=== PATIENT | male | born 1940 | race Caucasian/White ===

== ENCOUNTER 2018-02-17 10:51 | Emergency (ER) | payer MEDICARE, OTHER ==
[~2018-02-17] VITALS: Ht 175.3 cm; Wt 89.4 kg
--- OUTSIDE RECORDS SUMMARY | 2018-02-17 10:53 | XMS REPORT | Continuity of Care Document ---
Author Author [facility] Interface Address Unknown Phone Unavailable Problems Problem Status Onset Date Classification Date Reported Comments Source AAA Active 05/28/2016 [facility] AAA /ABDOMINAL AORTIC ANEURYSM Active 05/28/2016 [facility] AAA (<span [id number]</span>) Resolved Problem 08/24/2016 [facility] Coronary artery disease Resolved Problem 08/24/2016 [facility] Skin cancer Resolved Problem 08/24/2016 [facility] ABDOMINAL AORTIC ANEURYSM, RUPTURED Active [facility] ABDOMINAL AORTIC ANEURYSM, WITHOUT RUPTU Active [facility] Medications Medication Details Route Status Patient Instructions Ordering Provider Order Date Source Coreg 12.5 mg, Route: PO, Drug form: TAB, Q12H, Dosing Weight 92, kg, Start date: 05/28/16 21:00:00 RESP THER, Duration: 30 day, Stop date: 06/27/16 9:00:00 CDT Inactive 05/29/2016 [facility] lisinopril 20 mg oral tablet 40 mg=2 tab, PO, Daily, # 90 tab, 3 Refill(s) Active 05/28/2016 [facility] clopidogrel 75 mg oral tablet 75 mg=1 tab, PO, Daily, # 90 tab, 3 Refill(s) Active 05/28/2016 [facility] aspirin 81 mg tablet, enteric coated 81 mg=1 tab, PO, Daily, # 90 tab, 3 Refill(s) Active 05/28/2016 [facility] simvastatin 40 mg oral tablet 40 mg=1 tab, PO, Bedtime, # 90 tab, 3 Refill(s) Active 05/28/2016 [facility] levothyroxine 25 mcg (0.025 mg) oral tablet 25 microgram=1 tab, PO, Daily, # 90 tab, 3 Refill(s) Active 05/28/2016 [facility] carvedilol 12.5 mg oral tablet 12.5 mg=1 tab, PO, Daily, # 90 tab, 3 Refill(s) Active 05/28/2016 [facility] carvedilol 6.25 mg, 1 tab, Route: PO, Drug form: TAB, Daily, Dosing Weight 92, kg, Start date: 05/28/16 9:00:00 RESP THER, Duration: 30 day, Stop date: 06/26/16 9:00:00 CDTNotes: Give with food. (Same As: Coreg) No Longer Active 05/28/2016 [facility] Plavix 75 mg, 1 tab, Route: PO, Drug form: TAB, Daily, Dosing Weight 92, kg, Start date: 05/28/16 9:00:00 RESP THER, Duration: 30 day, Stop date: 06/26/16 9:00:00 CDTNotes: (Same As: Plavix) Inactive 05/28/2016 [facility] Lisinopril 40 mg, 2 tab, Route: PO, Drug form: TAB, Daily, Dosing Weight 92, kg, Start date: 05/28/16 9:00:00 RESP THER, Duration: 30 day, Stop date: 06/26/16 9:00:00 CDTNotes: (Same as: Prinivil, Zestril) Inactive 05/28/2016 [facility] Aspirin 81 mg, 1 tab, Route: PO, Drug form: ECTAB, Daily, Dosing Weight 92, kg, Start date: 05/28/16 9:00:00 RESP THER, Duration: 30 day, Stop date: 06/26/16 9:00:00 CDTNotes: Do not crush or chew. (Same As: Ecotrin) Inactive 05/28/2016 [facility] Thyroxine 25 microgram, 1 tab, Route: PO, Drug form: TAB, Daily, Dosing Weight 92, kg, Start date: 05/28/16 6:30:00 RESP THER, Duration: 30 day, Stop date: 06/26/16 6:30:00 CDTNotes: Take 1 hour before or 2 hours after meal; Enteral feeds may interefere with the absorption of this medication. (Same as:Levothroid) Inactive 05/28/2016 [facility] Coreg 6.25 mg, 1 tab, Route: PO, Drug form: TAB, ONCE, Dosing Weight 92, kg, Priority: NOW, Start date: 05/28/16 4:32:00 RESP THER, Stop date: 05/28/16 4:32:00 CSTNotes: Give with food. (Same As: Coreg) Inactive 05/28/2016 [facility] niCARdipine 40 mg/ NS 200 ml IV Soln (premix) 40 mg 40 mg, 200 mL, Rate: Titrate, Start Dose: 5 mg/hr, Titration: 2.5 mg/hr every 15 minutes, Goal(s): SBPNotes: Same as: Cardene Concentration: (0.2 mg /1 ml ) No Longer Active 05/28/2016 [facility] Lisinopril 20 mg, 1 tab, Route: PO, Drug form: TAB, ONCE, Dosing Weight 92, kg, Priority: STAT, Start date: 05/27/16 21:44:00 RESP THER, Stop date: 05/27/16 21:44:00 CSTNotes: (Same as: Prinivil, Zestril) Inactive 05/28/2016 [facility] Simvastatin 40 mg, 1 tab, Route: PO, Drug form: TAB, Bedtime, Dosing Weight 92, kg, Start date: 05/27/16 21:00:00 RESP THER, Duration: 30 day, Stop date: 06/25/16 21:00:00 CDTNotes: (Same as: Zocor) No Longer Active 05/28/2016 [facility] Saline Flush 0.9% 10 ml, Route: IVP, Drug Form: INJ, Dosing Weight 92, kg, Q12H, Start date: 05/27/16 21:00:00 RESP THER, Duration: 30 day, Stop date: 06/26/16 9:00:00 CDTNotes: (Same as: BD Posiflush) No Longer Active 05/28/2016 [facility] heparin 5,000 unit, 1 mL, Route: SUB-Q, Drug form: INJ, Q12H, Dosing Weight 92, kg, Start date: 05/27/16 21:00:00 RESP THER, Duration: 30 day, Stop date: 06/26/16 9:00:00 CDTNotes: porcine heparin No Longer Active 05/28/2016 [facility] Lisinopril 10 mg, 1 tab, Route: PO, Drug form: TAB, ONCE, Dosing Weight 92, kg, Priority: NOW, Start date: 05/27/16 19:40:00 RESP THER, Stop date: 05/27/16 19:40:00 CSTNotes: (Same as: Prinivil, Zestril) Inactive 05/28/2016 [facility] carvedilol 6.25 mg, 1 tab, Route: PO, Drug form: TAB, ONCE, Dosing Weight 92, kg, Priority: NOW, Start date: 05/27/16 19:40:00 RESP THER, Stop date: 05/27/16 19:40:00 CSTNotes: Give with food. (Same As: Coreg) Inactive 05/28/2016 [facility] Lisinopril 10 mg, 1 tab, Route: PO, Drug form: TAB, Daily, Dosing Weight 92, kg, Start date: 05/27/16 18:05:00 RESP THER, Duration: 30 day, Stop date: 06/26/16 9:00:00 CDTNotes: (Same as: Prinivil, Zestril) Inactive 05/28/2016 [facility] potassium phosphate-sodium phosphate 250 mg-280 mg-160 mg oral powder for reconstitution 2 pkt, Route: PO, Drug Form: PDR/REC, Dosing Weight 92, kg, PRN, PRN Abnormal Lab Result, For NON-ICU Patients Only, Start date: 05/27/16 16:31:00 RESP THER, Duration: 30 day, Stop date: 06/26/16 17:30:00 CDTNotes: (Same as: Phos-NaK) Each 1.5 gm pkt has 250mg phosphorous. Mix w/2.5oz water and stir. No Longer Active 05/27/2016 [facility] potassium chloride 20 mEq, 1 tab, Route: PO, Drug form: ERTAB, PRN, Dosing Weight 92, kg, PRN Abnormal Lab Result, For NON-ICU Patients Only, Start date: 05/27/16 16:31:00 RESP THER, Duration: 30 day, Stop date: 06/26/16 17:30:00 CDTNotes: (Same as: K-Dur 20) "Do Not Crush" With food and full glass of water No Longer Active 05/27/2016 [facility] sodium phosphate + sodium chloride 0.9% INJ 250 mL 15 mmol, 5 mL, Route: IVPB, PRN, Dosing Weight 92, kg, PRN Abnormal Lab Result, For NON- ICU Patients Only., Start date: 05/27/16 16:31:00 RESP THER, Duration: 30 day, Stop date: 06/26/16 17:30:00 CDT No Longer Active 05/27/2016 [facility] potassium phosphate + sodium chloride 0.9% INJ 250 mL 30 mmol, 10 mL, Route: IVPB, PRN, Dosing Weight 92, kg, PRN Abnormal Lab Result, For NON-ICU Patients Only., Start date: 05/27/16 16:31:00 RESP THER, Duration: 30 day, Stop date: 06/26/16 17:30:00 CDTNotes: (Same as: K Phosphate.) 1 mMol phoshate has 1.47 mEq potassium Infuse over 4 hours No Longer Active 05/27/2016 [facility] Magnesium Sulfate 1 gm, 100 mL, Route: IVPB, Drug form: INJ, PRN, Dosing Weight 92, kg, PRN Abnormal Lab Result, For NON-ICU Patients Only., Start date: 05/27/16 16:31:00 RESP THER, Duration: 30 day, Stop date: 06/26/16 17:30:00 CDTNotes: WASTE: F/P - Sink; E - Municipal Trash Bin No Longer Active 05/27/2016 [facility] Calcium Gluconate 3 gm, 30 mL, Route: IVPB, PRN, Dosing Weight 92, kg, PRN Abnormal Lab Result, For NON-ICU Patients Only., Start date: 05/27/16 16:31:00 RESP THER, Duration: 30 day, Stop date: 06/26/16 17:30:00 CDTNotes: WASTE: F/P - Sink; E - Municipal Trash Bin No Longer Active 05/27/2016 [facility] Magnesium Oxide 800 mg, 2 tab, Route: PO, Drug form: TAB, PRN, Dosing Weight 92, kg, PRN Abnormal Lab Result, For NON-ICU Patients Only., Start date: 05/27/16 16:31:00 RESP THER, Duration: 30 day, Stop date: 06/26/16 17:30:0 0 CDTNotes: (Same as: Mag-Ox 400) Magnesium oxide [id number] elemental magnesium Dose=____mg magnesium oxide (___mg elemental magnesium) No Longer Active 05/27/2016 [facility] Sodium Chloride 0.154 MEQ/ML Injectable Solution 250 mL, 250 ml/hr, Infuse Over: 1 hr, Route: IV, 250, Drug form: INJ, ONCE, Priority: STAT, Dosing Weight 92 kg, Start date: 05/27/16 15:24:00 RESP THER, Duration: 1 doses or times, Stop date: 05/27/16 15:24:00 RESP THER Inactive 05/27/2016 [facility] sodium chloride 0.9% 1000 ml INJ 1,000 mL 1,000 mL, Rate: 75 ml/hr, Infuse over: 13.3 hr, Route: IV, Dosing Weight 92 kg, Total Volume: 1,000, Start date: 05/27/16 15:24:00 RESP THER, Duration: 30 day, Stop date: 06/26/16 15:23:00 CDT No Longer Active 05/27/2016 [facility] Saline Flush 0.9% 10 ml, Route: IVP, Drug Form: INJ, Dosing Weight 92, kg, PRN, PRN Line Flush, Start date: 05/27/16 14:59:00 RESP THER, Duration: 30 day, Stop date: 06/26/16 15:58:00 CDTNotes: (Same as: BD Posiflush) No Longer Active 05/27/2016 [facility] Nystatin 100 UNT/MG Topical Powder 1 appl, Route: TOP, PRN, Drug form: PWDR, PRN For Fungal Prophylaxis, Start date: 05/27/16 14:59:00 RESP THER, Duration: 30 day, Stop date: 06/26/16 15:58:00 CDTNotes: (Same as:Mycostatin, Nilstat) For external use only. No Longer Active 05/27/2016 [facility] Sodium Chloride 0.154 MEQ/ML Injectable Solution 250 mL, 250 ml/hr, Infuse Over: 1 hr, Route: IV, 250, Drug form: INJ, ONCALL, Priority: Routine, kg, Start date: 05/27/16 12:00:00 RESP THER, Duration: 1 doses or times, Stop date: 05/28/16 0:00:00 RESP THER Inactive 05/27/2016 [facility] Labetalol 10 mg, 2 mL, Route: IVP, Drug form: INJ, ONCE, Dosing Weight 92.727, kg, Start date: 05/27/16 11:40:00 RESP THER, Stop date: 05/27/16 11:40:00 RESP THER Inactive 05/27/2016 [facility] simvastatin 40 mg oral tablet 40 mg=1 tab, PO, Bedtime, # 90 tab, 1 Refill(s) No Longer Active 05/27/2016 [facility] carvedilol 6.25 mg oral tablet 6.25 mg=1 tab, PO, Daily, # 180 tab, 0 Refill(s) No Longer Active 05/27/2016 [facility] levothyroxine 25 mcg (0.025 mg) oral tablet 25 microgram=1 tab, PO, Daily, # 30 tab, 0 Refill(s) Active 05/27/2016 [facility] enalapril 10 mg oral tablet 10 mg=1 tab, PO, Daily, # 30 tab, 0 Refill(s) No Longer Active 05/27/2016 [facility] Sodium Chloride 0.154 MEQ/ML Injectable Solution 750 mL, Rate: 75 ml/hr, Infuse over: 10 hr, Route: IV, Total Volume: 750, Start date: 05/27/16 11:06:00 RESP THER, Duration: 24 hr, Stop date: 05/28/16 11:05:00 RESP THER No Longer Active 05/27/2016 [facility] Allergies, Adverse Reactions, Alerts Substance Category Reaction Severity Reaction type Status Date Reported Comments Source Immunizations Immunization Date Given Site Status Last Updated Comments Source Results Order Name Results Value Reference Range Date Interpretation Comments Source CHEM PANEL POC Creatinine 0.7 mg/dL 0.5 - 1.4 08/21/2016 [facility] CHEM PANEL eGFR 92 mL/min/1.73m2 08/21/2016 Result Comment: The eGFR is calculated using the CKD-EPI formula. In most young, healthy individuals the eGFR will be >90 mL/min/1.73m2. The eGFR declines with age. An eGFR of 60-89 may be normal in some populations, particularly the elderly, for whom the CKD-EPI formula has not been extensively validated. Use of the eGFR is not recommended in the following populations: Individuals with unstable creatinine concentrations, including patients and those with serious co-morbid conditions. Patients with extremes in muscle mass or diet. The data above are obtained from the National Kidney Disease Education Program (NKDEP) which additionally recommends that when the eGFR is used in patients with extremes of body mass index for purposes of drug dosing, the eGFR should be multiplied by the estimated BMI. [facility] Abdomen/Pelvis CTA Abdomen/Pelvis CTA EXAM: CTA Abdomen and Pelvis DATE: 08/21/2016 9:27 AM CDT INDICATION: AORTIC ANEURYSM - AAA ADDITIONAL INFORMATION: None. COMPARISON: None. TECHNIQUE: Volumetric CT acquisition of the abdomen and pelvis, in arterial phase. Axial, coronal and sagittal reconstructions. MIP reformats are created at the acquisition workstation. FINDINGS: There are postoperative changes compatible with endovascular repair of abdominal aortic aneurysm using a bifurcated graft. The evaluation of endoleak is limited due to the absence of a precontrast and a delayed the phase. There are 2 tiny hyperdense areas inside the thrombosed of the aneurysmal sac which are difficult to characterize. They could represent the calcifications, the possibility of an endoleak cannot be excluded. There is good flow through the graft with normal flow in the iliac arteries bilaterally. The maximum diameter of the abdominal aneurysm measures 5.6 cm. The celiac axis, SMA and single bilateral renal arteries and BG are patent. There are multiple hypodense liver lesions which are suggestive of cysts. There is a one liver lesion located at the right lobe of the liver seen on image 15, series 5 which measures 3.3 cm and could represent a hemorrhagic cyst. There are multiple splenic granulomata. There is minimal atelectasis at the left lung base. IMPRESSION: 1. There are postoperative changes compatible with endovascular repair of an abdominal aortic aneurysm using a bifurcated graft which is patent. 2. The evaluation for an endoleak is limited due to the absence of a precontrast and delayed venous phase. 3. The maximum diameter of the aneurysmal sac measures 5.6 cm. 4. Multiple hypodense liver lesions suggestive of cysts which are correlated with the prior ultrasound dated 03/02/2006. One of these lesions seen on image 16, series 5 appears slightly hyperdense and could represent a hemorrhagic cyst. Recommend follow-up ultrasound. 5. The splenic granulomata suggestive of old granulomatous disease. 08/21/2016 - - Read by: Juliet Naranjo MD Dictated Date/time: 08/21/16 13:56 Electronically Signed by: Juliet Naranjo MD 08/21/16 14:02 FINAL REPORT [facility] Abdomen AP DX Abdomen AP DX EXAM: XR ABDOMEN 1 VIEW DATE: 05/28/2016 6:03 AM RESP THER INDICATION: Tube placement/removal/reposition ADDITIONAL INFORMATION: None. COMPARISON: None. TECHNIQUE: AP view of the abdomen. 2 images provided FINDINGS: Scattered gas is noted throughout small and large bowel loops. No evidence of obstruction. This may represent changes of ileus. Recommend follow-up. Moderate amount stool burden noted predominantly in the cecum and ascending colon. Status post aortoiliac graft in place. Degenerative changes of the lumbosacral spine are noted. IMPRESSION: 1. Gas throughout small and large bowel loops may represent ileus. No definite obstruction. Recommend follow-up. 05/28/2016 - - Read by: Cece Gamez MD Dictated Date/time: 05/28/16 09:41 Electronically Signed by: Cece Gamez 05/28/16 09:43 FINAL REPORT [facility] CHEM PANEL Phosphorus 3.4 mg/dL 2.5 - 4.5 05/28/2016 [facility] CHEM PANEL Magnesium Lvl 2.3 mg/dL 1.8 - 2.4 05/28/2016 [facility] ELECTROLYTES AGAP 15.8 meq/L 10.0 - 20.0 05/28/2016 [facility] ELECTROLYTES eGFR 97 mL/min/1.73m2 05/28/2016 Result Comment: The eGFR is calculated using the CKD-EPI formula. In most young, healthy individuals the eGFR will be >90 mL/min/1.73m2. The eGFR declines with age. An eGFR of 60-89 may be normal in some populations, particularly the elderly, for whom the CKD-EPI formula has not been extensively validated. Use of the eGFR is not recommended in the following populations: Individuals with unstable creatinine concentrations, including patients and those with serious co-morbid conditions. Patients with extremes in muscle mass or diet. The data above are obtained from the National Kidney Disease Education Program (NKDEP) which additionally recommends that when the eGFR is used in patients with extremes of body mass index for purposes of drug dosing, the eGFR should be multiplied by the estimated BMI. [facility] ELECTROLYTES Calcium Lvl 9.3 mg/dL 8.5 - 10.5 05/28/2016 [facility] ELECTROLYTES Chloride Lvl 104 meq/L 95 - 109 05/28/2016 [facility] ELECTROLYTES CO2 23 meq/L 24 - 32 05/28/2016 [facility] ELECTROLYTES Sodium Lvl 139 meq/L 135 - 145 05/28/2016 [facility] ELECTROLYTES Potassium Lvl 3.8 meq/L 3.5 - 5.1 05/28/2016 [facility] ELECTROLYTES Creatinine Lvl 0.63 mg/dL 0.50 - 1.40 05/28/2016 [facility] ELECTROLYTES BUN 7 mg/dL 7 - 22 05/28/2016 [facility] ELECTROLYTES Glucose Lvl 113 mg/dL 70 - 99 05/28/2016 [facility] HEMATOLOGY Platelet 159 K/CMM 133 - 450 05/28/2016 [facility] HEMATOLOGY MPV 9.2 fL 7.4 - 10.4 05/28/2016 [facility] HEMATOLOGY RDW 13.0 % 11.5 - 14.5 05/28/2016 [facility] HEMATOLOGY Hgb 13.1 g/dL 14.0 - 18.0 05/28/2016 [facility] HEMATOLOGY RBC 4.01 M/CMM 4.70 - 6.10 05/28/2016 [facility] HEMATOLOGY Hct 36.7 % 42.0 - 54.0 05/28/2016 [facility] HEMATOLOGY MCHC 35.6 g/dL 32.0 - 36.0 05/28/2016 [facility] HEMATOLOGY MCH 32.7 pg 27.0 - 31.0 05/28/2016 [facility] HEMATOLOGY MCV 91.6 fL 80.0 - 94.0 05/28/2016 [facility] HEMATOLOGY WBC 7.2 K/CMM 3.7 - 10.4 05/28/2016 [facility] HEMATOLOGY PTT 30.3 s 22.9 - 35.8 05/28/2016 [facility] HEMATOLOGY INR 1.16 0.85 - 1.17 05/28/2016 [facility] HEMATOLOGY PT 15.0 s 12.0 - 14.7 05/28/2016 [facility] HEMATOLOGY Lymphocytes 14.7 % 20.0 - 40.0 05/28/2016 [facility] HEMATOLOGY Monocytes 8.6 % 2.0 - 12.0 05/28/2016 [facility] HEMATOLOGY Segs 74.8 % 45.0 - 75.0 05/28/2016 [facility] HEMATOLOGY Monocytes # 0.6 K/CMM 0.0 - 0.8 05/28/2016 [facility] HEMATOLOGY Eosinophils 1.3 % 0.0 - 4.0 05/28/2016 [facility] HEMATOLOGY Basophils 0.6 % 0.0 - 1.0 05/28/2016 [facility] HEMATOLOGY Segs-Bands # 5.4 K/CMM 1.5 - 8.1 05/28/2016 [facility] HEMATOLOGY Lymphocytes # 1.1 K/CMM 1.0 - 5.5 05/28/2016 [facility] HEMATOLOGY Eosinophils # 0.1 K/CMM 0.0 - 0.5 05/28/2016 [facility] PARATHYROID PROFILE Ca Ion WB 1.12 mMol/L 1.05 - 1.25 05/28/2016 [facility] PARATHYROID PROFILE Ca Norm WB 1.12 mMol/L 1.05 - 1.25 05/28/2016 [facility] CHEM PANEL eGFR 91 mL/min/1.73m2 05/27/2016 Result Comment: The eGFR is calculated using the CKD-EPI formula. In most young, healthy individuals the eGFR will be >90 mL/min/1.73m2. The eGFR declines with age. An eGFR of 60-89 may be normal in some populations, particularly the elderly, for whom the CKD-EPI formula has not been extensively validated. Use of the eGFR is not recommended in the following populations: Individuals with unstable creatinine concentrations, including patients and those with serious co-morbid conditions. Patients with extremes in muscle mass or diet. The data above are obtained from the National Kidney Disease Education Program (NKDEP) which additionally recommends that when the eGFR is used in patients with extremes of body mass index for purposes of drug dosing, the eGFR should be multiplied by the estimated BMI. [facility] CHEM PANEL Calcium Lvl 8.4 mg/dL 8.5 - 10.5 05/27/2016 [facility] CHEM PANEL CO2 22 meq/L 24 - 32 05/27/2016 [facility] CHEM PANEL Sodium Lvl 137 meq/L 135 - 145 05/27/2016 [facility] CHEM PANEL Potassium Lvl 4.1 meq/L 3.5 - 5.1 05/27/2016 [facility] CHEM PANEL BUN 6 mg/dL 7 - 22 05/27/2016 [facility] CHEM PANEL Glucose Lvl 123 mg/dL 70 - 99 05/27/2016 [facility] CHEM PANEL Chloride Lvl 106 meq/L 95 - 109 05/27/2016 [facility] CHEM PANEL Creatinine Lvl 0.73 mg/dL 0.50 - 1.40 05/27/2016 [facility] CHEM PANEL AGAP 13.1 meq/L 10.0 - 20.0 05/27/2016 [facility] CHEM PANEL Phosphorus 3.3 mg/dL 2.5 - 4.5 05/27/2016 [facility] CHEM PANEL Magnesium Lvl 1.7 mg/dL 1.8 - 2.4 05/27/2016 [facility] HEMATOLOGY MPV 8.6 fL 7.4 - 10.4 05/27/2016 [facility] HEMATOLOGY WBC 5.8 K/CMM 3.7 - 10.4 05/27/2016 [facility] HEMATOLOGY RBC 3.76 M/CMM 4.70 - 6.10 05/27/2016 [facility] HEMATOLOGY Hgb 12.3 g/dL 14.0 - 18.0 05/27/2016 [facility] HEMATOLOGY Hct 34.3 % 42.0 - 54.0 05/27/2016 [facility] HEMATOLOGY MCV 91.2 fL 80.0 - 94.0 05/27/2016 [facility] HEMATOLOGY MCHC 35.8 g/dL 32.0 - 36.0 05/27/2016 [facility] HEMATOLOGY MCH 32.6 pg 27.0 - 31.0 05/27/2016 [facility] HEMATOLOGY RDW 12.9 % 11.5 - 14.5 05/27/2016 [facility] HEMATOLOGY Platelet 137 K/CMM 133 - 450 05/27/2016 [facility] HEMATOLOGY Monocytes 6.6 % 2.0 - 12.0 05/27/2016 [facility] HEMATOLOGY Lymphocytes # 1.3 K/CMM 1.0 - 5.5 05/27/2016 [facility] HEMATOLOGY Segs-Bands # 4.0 K/CMM 1.5 - 8.1 05/27/2016 [facility] HEMATOLOGY Segs 68.1 % 45.0 - 75.0 05/27/2016 [facility] HEMATOLOGY Lymphocytes 22.1 % 20.0 - 40.0 05/27/2016 [facility] HEMATOLOGY Basophils 0.6 % 0.0 - 1.0 05/27/2016 [facility] HEMATOLOGY Eosinophils 2.6 % 0.0 - 4.0 05/27/2016 [facility] HEMATOLOGY Monocytes # 0.4 K/CMM 0.0 - 0.8 05/27/2016 [facility] HEMATOLOGY Eosinophils # 0.2 K/CMM 0.0 - 0.5 05/27/2016 [facility] PARATHYROID PROFILE Ca Norm WB 1.08 mMol/L 1.05 - 1.25 05/27/2016 [facility] PARATHYROID PROFILE Ca Ion WB 1.09 mMol/L 1.05 - 1.25 05/27/2016 [facility] HEMATOLOGY POC Activated Clotting Time 246 s 05/27/2016 [facility] HEMATOLOGY POC Activated Clotting Time 296 s 05/27/2016 [facility] BLOOD BANK RESULTS RBC product Product available (05/27/16 12:44 PM) 05/27/2016 [facility] BLOOD BANK RESULTS FFP product Product available (05/27/16 12:44 PM) 05/27/2016 [facility] BLOOD BANK RESULTS ABO/Rh AB POS 05/27/2016 [facility] BLOOD BANK RESULTS Antibody Scrn Negative (05/27/16 11:08 AM) 05/27/2016 [facility] CHEM PANEL Albumin Lvl 4.3 g/dL 3.5 - 5.0 05/27/2016 [facility] ELECTROLYTES AGAP 12.8 meq/L 10.0 - 20.0 05/27/2016 [facility] ELECTROLYTES eGFR 85 mL/min/1.73m2 05/27/2016 Result Comment: The eGFR is calculated using the CKD-EPI formula. In most young, healthy individuals the eGFR will be >90 mL/min/1.73m2. The eGFR declines with age. An eGFR of 60-89 may be normal in some populations, particularly the elderly, for whom the CKD-EPI formula has not been extensively validated. Use of the eGFR is not recommended in the following populations: Individuals with unstable creatinine concentrations, including patients and those with serious co-morbid conditions. Patients with extremes in muscle mass or diet. The data above are obtained from the National Kidney Disease Education Program (NKDEP) which additionally recommends that when the eGFR is used in patients with extremes of body mass index for purposes of drug dosing, the eGFR should be multiplied by the estimated BMI. [facility] ELECTROLYTES CO2 27 meq/L 24 - 32 05/27/2016 [facility] ELECTROLYTES Creatinine Lvl 0.86 mg/dL 0.50 - 1.40 05/27/2016 [facility] ELECTROLYTES Sodium Lvl 138 meq/L 135 - 145 05/27/2016 [facility] ELECTROLYTES Potassium Lvl 3.8 meq/L 3.5 - 5.1 05/27/2016 [facility] ELECTROLYTES Chloride Lvl 102 meq/L 95 - 109 05/27/2016 [facility] ELECTROLYTES Glucose Lvl 145 mg/dL 70 - 99 05/27/2016 [facility] ELECTROLYTES BUN 7 mg/dL 7 - 22 05/27/2016 [facility] ELECTROLYTES Calcium Lvl 9.3 mg/dL 8.5 - 10.5 05/27/2016 [facility] HEMATOLOGY Hgb 14.1 g/dL 14.0 - 18.0 05/27/2016 [facility] HEMATOLOGY RBC 4.47 M/CMM 4.70 - 6.10 05/27/2016 [facility] HEMATOLOGY MCV 92.3 fL 80.0 - 94.0 05/27/2016 [facility] HEMATOLOGY MCH 31.5 pg 27.0 - 31.0 05/27/2016 [facility] HEMATOLOGY Hct 41.2 % 42.0 - 54.0 05/27/2016 [facility] HEMATOLOGY WBC 6.3 K/CMM 3.7 - 10.4 05/27/2016 [facility] HEMATOLOGY MCHC 34.2 g/dL 32.0 - 36.0 05/27/2016 [facility] HEMATOLOGY RDW 13.1 % 11.5 - 14.5 05/27/2016 [facility] HEMATOLOGY Platelet 179 K/CMM 133 - 450 05/27/2016 [facility] HEMATOLOGY MPV 8.3 fL 7.4 - 10.4 05/27/2016 [facility] HEMATOLOGY PTT 28.2 s 22.9 - 35.8 05/27/2016 [facility] HEMATOLOGY PT 15.3 s 12.0 - 14.7 05/27/2016 [facility] HEMATOLOGY INR 1.18 0.85 - 1.17 05/27/2016 [facility] HEMATOLOGY Eosinophils # 0.2 K/CMM 0.0 - 0.5 05/27/2016 [facility] HEMATOLOGY Basophils # 0.1 K/CMM 0.0 - 0.2 05/27/2016 [facility] HEMATOLOGY Monocytes 8.1 % 2.0 - 12.0 05/27/2016 [facility] HEMATOLOGY Basophils 0.8 % 0.0 - 1.0 05/27/2016 [facility] HEMATOLOGY Eosinophils 3.2 % 0.0 - 4.0 05/27/2016 [facility] HEMATOLOGY Lymphocytes 25.8 % 20.0 - 40.0 05/27/2016 [facility] HEMATOLOGY Lymphocytes # 1.6 K/CMM 1.0 - 5.5 05/27/2016 [facility] HEMATOLOGY Monocytes # 0.5 K/CMM 0.0 - 0.8 05/27/2016 [facility] HEMATOLOGY Segs-Bands # 3.9 K/CMM 1.5 - 8.1 05/27/2016 [facility] HEMATOLOGY Segs 62.1 % 45.0 - 75.0 05/27/2016 [facility] Vital Signs Vital Sign Value Date Comments Source BMI Calculated 28.76 08/21/2016 [facility] Weight 90.909 08/21/2016 [facility] Height 177.8 cm 08/21/2016 [facility] Systolic (mm Hg) 100 05/28/2016 [facility] Diastolic (mm Hg) 64 05/28/2016 [facility] Respitory Rate 33 05/28/2016 [facility] Systolic (mm Hg) 104 05/28/2016 [facility] Diastolic (mm Hg) 55 05/28/2016 [facility] Respitory Rate 16 05/28/2016 [facility] Systolic (mm Hg) 112 05/28/2016 [facility] Diastolic (mm Hg) 55 05/28/2016 [facility] Respitory Rate 17 05/28/2016 [facility] Temperature Oral (F) 98.1 F 05/28/2016 [facility] Temperature Oral (F) 99 F 05/28/2016 [facility] Temperature Oral (F) 98.7 F 05/28/2016 [facility] Weight 92 05/27/2016 [facility] BMI Calculated 29.95 05/27/2016 [facility] Height 175.26 cm 05/27/2016 [facility] Height 175.26 cm 05/27/2016 [facility] Weight 92.727 05/27/2016 [facility] BMI Calculated 30.19 05/27/2016 [facility] Encounters Location Location Details Encounter Type Encounter Number Reason For Visit Attending Provider ADM Date DC Date Status Source [facility] Inpatient [id number] Darnell Bruce 05/27/2016 05/28/2016 [facility] [id number] Darnell Bruce 08/21/2016 08/22/2016 [facility] Procedures Procedure Code Date Perfomer Comments Source 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
--- OUTSIDE RECORDS SUMMARY | 2018-02-17 10:53 | XMS REPORT | Summary of Care ---
Author Author [facility] Organization [facility] Address Unknown Phone Unavailable Encounter TOOTIE Mehta(PINKY) [id number] Date(s): 05/27/16 - 05/28/16 [facility] [address] [facility] provided by [facility] [place] [address]- Discharge Disposition: Home or Self Care Attending Physician: Marquis Bruce MD Admitting Physician: Marquis Bruce MD Referring Physician: Marquis Bruce MD Vital Signs 1 2 3 Most recent to oldest [Reference Range]: 175.26 cm (05/27/16 2:43 PM) 175.26 cm (05/27/16 11:06 AM) Height 98.1 DegF (05/28/16 7:30 AM) 99 DegF (05/28/16 4:00 AM) 98.7 DegF (05/28/16 12:00 AM) Temperature Oral [96.4-99.1 DegF] 100/64 mmHg (05/28/16 3:00 PM) 104/55 mmHg (05/28/16 2:30 PM) 112/55 mmHg (05/28/16 2:00 PM) Blood Pressure [90-140/60-90 mmHg] 33 BRMIN *HI* (05/28/16 3:00 PM) 16 BRMIN (05/28/16 2:30 PM) 17 BRMIN (05/28/16 2:00 PM) Respiratory Rate [14-20 BRMIN] 92 kg (05/27/16 2:43 PM) 92.727 kg (05/27/16 11:06 AM) Weight 29.95 m2 (05/27/16 2:43 PM) 30.19 m2 (05/27/16 11:06 AM) Body Mass Index Problem List Condition Effective Dates Status Health Status Informant AAA (abdominal Resolved aortic aneurysm)(Confirmed) Coronary artery Resolved disease(Confirmed) Skin Resolved cancer(Confirmed) Allergies, Adverse Reactions, Alerts Substance Reaction Severity Status NKDA Active Medications aspirin 81 mg, 1 tab, Route: PO, Drug form: ECTAB, Daily, Dosing Weight 92, kg, Start da te: 05/28/16 9:00:00 ASSISTANT HEAD CASHIER, Duration: 30 day, Stop date: 06/26/16 9:00:00 CDT Notes: Do not crush or chew.(Same As: Ecotrin) Start Date: 05/28/16 Stop Date: 05/28/16 Status: Discontinued aspirin 81 mg tablet, enteric coated 81 mg=1 tab, PO, Daily, # 90 tab, 3 Refill(s) Start Date: 05/28/16 Status: Ordered calcium gluconate + sodium chloride 0.9% INJ 100 mL 3 gm, 30 mL, Route: IVPB, PRN, Dosing Weight 92, kg, PRN Abnormal Lab Result, Fo r NON-ICU Patients Only., Start date: 05/27/16 16:31:00 ASSISTANT HEAD CASHIER, Duration: 30 day, S top date: 06/26/16 17:30:00 CDT Notes: WASTE: F/P - Sink; E - Municipal Trash Bin Start Date: 05/27/16 Stop Date: 05/28/16 Status: Discontinued calcium gluconate + sodium chloride 0.9% INJ 80 mL 2 gm, 20 mL, Route: IVPB, PRN, Dosing Weight 92, kg, PRN Abnormal Lab Result, Fo r NON-ICU Patients Only., Start date: 05/27/16 16:31:00 ASSISTANT HEAD CASHIER, Duration: 30 day, S top date: 06/26/16 17:30:00 CDT Notes: WASTE: F/P - Sink; E - Municipal Trash Bin Start Date: 05/27/16 Stop Date: 05/28/16 Status: Discontinued carvedilol 6.25 mg, 1 tab, Route: PO, Drug form: TAB, Daily, Dosing Weight 92, kg, Start da te: 05/28/16 9:00:00 ASSISTANT HEAD CASHIER, Duration: 30 day, Stop date: 06/26/16 9:00:00 CDT Notes: Give with food. (Same As: Coreg) Start Date: 05/28/16 Stop Date: 05/27/16 Status: Canceled carvedilol 6.25 mg, 1 tab, Route: PO, Drug form: TAB, ONCE, Dosing Weight 92, kg, Priority: NOW, Start date: 05/27/16 19:40:00 ASSISTANT HEAD CASHIER, Stop date: 05/27/16 19:40:00 ASSISTANT HEAD CASHIER Notes: Give with food. (Same As: Coreg) Start Date: 05/27/16 Stop Date: 05/27/16 Status: Completed carvedilol 12.5 mg, 1 tab, Route: PO, Drug form: TAB, Daily, Dosing Weight 92, kg, Start da te: 05/28/16 9:00:00 ASSISTANT HEAD CASHIER, Duration: 30 day, Stop date: 06/26/16 9:00:00 CDT Notes: Give with food. (Same As: Coreg) Start Date: 05/28/16 Stop Date: 05/28/16 Status: Discontinued carvedilol 12.5 mg oral tablet 12.5 mg=1 tab, PO, Daily, # 90 tab, 3 Refill(s) Start Date: 05/28/16 Status: Ordered carvedilol 6.25 mg oral tablet 6.25 mg=1 tab, PO, Daily, # 180 tab, 0 Refill(s) Start Date: 05/27/16 Stop Date: 05/28/16 Status: Discontinued clopidogrel 75 mg oral tablet 75 mg=1 tab, PO, Daily, # 90 tab, 3 Refill(s) Start Date: 05/28/16 Status: Ordered Coreg 6.25 mg, 1 tab, Route: PO, Drug form: TAB, ONCE, Dosing Weight 92, kg, Priority: NOW, Start date: 05/28/16 4:32:00 ASSISTANT HEAD CASHIER, Stop date: 05/28/16 4:32:00 ASSISTANT HEAD CASHIER Notes: Give with food. (Same As: Coreg) Start Date: 05/28/16 Stop Date: 05/28/16 Status: Completed Coreg 12.5 mg, Route: PO, Drug form: TAB, Q12H, Dosing Weight 92, kg, Start date: 04/15 21:00:00 ASSISTANT HEAD CASHIER, Duration: 30 day, Stop date: 06/27/16 9:00:00 CDT Start Date: 05/28/16 Stop Date: 05/28/16 Status: Canceled enalapril 10 mg oral tablet 10 mg=1 tab, PO, Daily, # 30 tab, 0 Refill(s) Start Date: 05/27/16 Stop Date: 05/28/16 Status: Discontinued heparin 5,000 unit, 1 mL, Route: SUB-Q, Drug form: INJ, Q12H, Dosing Weight 92, kg, Star t date: 05/27/16 21:00:00 ASSISTANT HEAD CASHIER, Duration: 30 day, Stop date: 06/26/16 9:00:00 CDT Notes: porcine heparin Start Date: 05/27/16 Stop Date: 05/28/16 Status: Discontinued labetalol 10 mg, 2 mL, Route: IVP, Drug form: INJ, ONCE, Dosing Weight 92.727, kg, Start d ate: 05/27/16 11:40:00 ASSISTANT HEAD CASHIER, Stop date: 05/27/16 11:40:00 ASSISTANT HEAD CASHIER Start Date: 05/27/16 Stop Date: 05/27/16 Status: Completed levothyroxine 25 microgram, 1 tab, Route: PO, Drug form: TAB, Daily, Dosing Weight 92, kg, Sta rt date: 05/28/16 6:30:00 ASSISTANT HEAD CASHIER, Duration: 30 day, Stop date: 06/26/16 6:30:00 CDT Notes: Take 1 hour before or 2 hours after meal; Enteral feeds may interefere wi th the absorption of this medication. (Same as:Levothroid) Start Date: 05/28/16 Stop Date: 05/28/16 Status: Discontinued levothyroxine 25 mcg (0.025 mg) oral tablet 25 microgram=1 tab, PO, Daily, # 90 tab, 3 Refill(s) Start Date: 05/28/16 Status: Ordered levothyroxine 25 mcg (0.025 mg) oral tablet 25 microgram=1 tab, PO, Daily, # 30 tab, 0 Refill(s) Start Date: 05/27/16 Status: Ordered lisinopril 20 mg, 1 tab, Route: PO, Drug form: TAB, ONCE, Dosing Weight 92, kg, Priority: S TAT, Start date: 05/27/16 21:44:00 ASSISTANT HEAD CASHIER, Stop date: 05/27/16 21:44:00 ASSISTANT HEAD CASHIER Notes: (Same as: Prinivil, Zestril) Start Date: 05/27/16 Stop Date: 05/27/16 Status: Completed lisinopril 10 mg, 1 tab, Route: PO, Drug form: TAB, Daily, Dosing Weight 92, kg, Start date : 05/27/16 18:05:00 ASSISTANT HEAD CASHIER, Duration: 30 day, Stop date: 06/26/16 9:00:00 CDT Notes: (Same as: Prinivil Zestril) Start Date: 05/27/16 Stop Date: 05/27/16 Status: Discontinued lisinopril 10 mg, 1 tab, Route: PO, Drug form: TAB, ONCE, Dosing Weight 92, kg, Priority: N OW, Start date: 05/27/16 19:40:00 ASSISTANT HEAD CASHIER, Stop date: 05/27/16 19:40:00 ASSISTANT HEAD CASHIER Notes: (Same as: Prinivagata Zestril) Start Date: 05/27/16 Stop Date: 05/27/16 Status: Completed lisinopril 40 mg, 2 tab, Route: PO, Drug form: TAB, Daily, Dosing Weight 92, kg, Start date : 05/28/16 9:00:00 ASSISTANT HEAD CASHIER, Duration: 30 day, Stop date: 06/26/16 9:00:00 CDT Notes: (Same as: ivagata, Zestril) Start Date: 05/28/16 Stop Date: 05/28/16 Status: Discontinued lisinopril 20 mg oral tablet 40 mg=2 tab, PO, Daily, # 90 tab, 3 Refill(s) Start Date: 05/28/16 Status: Ordered magnesium oxide 800 mg, 2 tab, Route: PO, Drug form: TAB, PRN, Dosing Weight 92, kg, PRN Abnorma l Lab Result, For NON-ICU Patients Only., Start date: 05/27/16 16:31:00 ASSISTANT HEAD CASHIER, Dur ation: 30 day, Stop date: 06/26/16 17:30:00 CDT Notes: (Same as: Mag-Ox 400)Magnesium oxide 110mp=315ng elemental magnesiumDose= ____mg magnesium oxide (___mg elemental magnesium) Start Date: 05/27/16 Stop Date: 05/28/16 Status: Discontinued magnesium sulfate 1 gm, 100 mL, Route: IVPB, Drug form: INJ, PRN, Dosing Weight 92, kg, PRN Abnorm al Lab Result, For NON-ICU Patients Only., Start date: 05/27/16 16:31:00 ASSISTANT HEAD CASHIER, Du ration: 30 day, Stop date: 06/26/16 17:30:00 CDT Notes: WASTE: F/P - Sink; E - Municipal Trash Bin Start Date: 05/27/16 Stop Date: 05/28/16 Status: Discontinued magnesium sulfate 2 gm, 50 mL, Route: IVPB, Drug form: INJ, PRN, Dosing Weight 92, kg, PRN Abnorma l Lab Result, For NON-ICU Patients Only., Start date: 05/27/16 16:31:00 ASSISTANT HEAD CASHIER, Dur ation: 30 day, Stop date: 06/26/16 17:30:00 CDT Notes: WASTE: F/P - Sink; E - Municipal Trash Bin Start Date: 05/27/16 Stop Date: 05/28/16 Status: Discontinued niCARdipine 40 mg/ NS 200 ml IV Soln (premix) 40 mg 40 mg, 200 mL, Rate: Titrate, Start Dose: 5 mg/hr, Titration: 2.5 mg/hr every 15 minutes, Goal(s): SBP<125, Max Dose: 15 mg/hr, Route: IVPB, Dosing Weight 92 kg, Total Volume: 200, Start date: 05/27/16 22:15:00 ASSISTANT HEAD CASHIER, Duration: 30 day, Stop date: ... Notes: Same as: CardeneConcentration: (0.2 mg /1 ml ) Start Date: 05/27/16 Stop Date: 05/28/16 Status: Discontinued NS (Bolus) IV 250 mL, 250 ml/hr, Infuse Over: 1 hr, Route: IV, 250, Drug form: INJ, ONCE, Prio rity: STAT, Dosing Weight 92 kg, Start date: 05/27/16 15:24:00 ASSISTANT HEAD CASHIER, Duration: 1 doses or times, Stop date: 05/27/16 15:24:00 ASSISTANT HEAD CASHIER Start Date: 05/27/16 Stop Date: 05/27/16 Status: Completed nystatin topical 100,000 units/g powder 1 appl, Route: TOP, PRN, Drug form: PWDR, PRN For Fungal Prophylaxis, Start date : 05/27/16 14:59:00 ASSISTANT HEAD CASHIER, Duration: 30 day, Stop date: 06/26/16 15:58:00 CDT Notes: (Same as:Mycostatin, Nilstat) For external use only. Start Date: 05/27/16 Stop Date: 05/28/16 Status: Discontinued Plavix 75 mg, 1 tab, Route: PO, Drug form: TAB, Daily, Dosing Weight 92, kg, Start date : 05/28/16 9:00:00 ASSISTANT HEAD CASHIER, Duration: 30 day, Stop date: 06/26/16 9:00:00 CDT Notes: (Same As: Plavix) Start Date: 05/28/16 Stop Date: 05/28/16 Status: Discontinued potassium chloride 20 mEq, 1 tab, Route: PO, Drug form: ERTAB, PRN, Dosing Weight 92, kg, PRN Abnor mal Lab Result, For NON-ICU Patients Only, Start date: 05/27/16 16:31:00 ASSISTANT HEAD CASHIER, Du ration: 30 day, Stop date: 06/26/16 17:30:00 CDT Notes: (Same as: K-Dur 20)"Do Not Crush" With food and full glass of water Start Date: 05/27/16 Stop Date: 05/28/16 Status: Discontinued potassium chloride 10 mEq, 50 mL, Route: IVPB, Drug form: INJ, PRN, Dosing Weight 92, kg, PRN Abnor mal Lab Result, For NON-ICU Patients Only, Start date: 05/27/16 16:31:00 ASSISTANT HEAD CASHIER, Du ration: 30 day, Stop date: 06/26/16 17:30:00 CDT Notes: (Same as: KCL) Infuse over 2 hours. Start Date: 05/27/16 Stop Date: 05/28/16 Status: Discontinued potassium chloride 20 mEq, 15 mL, Route: NJ, Drug form: LIQ, PRN, Dosing Weight 92, kg, PRN Abnorma l Lab Result, For NON-ICU Patients Only, Start date: 05/27/16 16:31:00 ASSISTANT HEAD CASHIER, Dura tion: 30 day, Stop date: 06/26/16 17:30:00 CDT Notes: (Same as: Potassium Chloride) Start Date: 05/27/16 Stop Date: 05/28/16 Status: Discontinued potassium phosphate + sodium chloride 0.9% INJ 250 mL 30 mmol, 10 mL, Route: IVPB, PRN, Dosing Weight 92, kg, PRN Abnormal Lab Result, For NON-ICU Patients Only., Start date: 05/27/16 16:31:00 ASSISTANT HEAD CASHIER, Duration: 30 day, Stop date: 06/26/16 17:30:00 CDT Notes: (Same as: K Phosphate.) 1 mMol phoshate has 1.47 mEq potassium Infuse o frandy 4 hours Start Date: 05/27/16 Stop Date: 05/28/16 Status: Discontinued potassium phosphate + sodium chloride 0.9% INJ 250 mL 15 mmol, 5 mL, Route: IVPB, PRN, Dosing Weight 92, kg, PRN Abnormal Lab Result, For NON-ICU Patients Only., Start date: 05/27/16 16:31:00 ASSISTANT HEAD CASHIER, Duration: 30 day, Stop date: 06/26/16 17:30:00 CDT Notes: (Same as: K Phosphate.) 1 mMol phoshate has 1.47 mEq potassium Infuse o frandy 4 hours Start Date: 05/27/16 Stop Date: 05/28/16 Status: Discontinued potassium phosphate-sodium phosphate 250 mg-280 mg-160 mg oral powder for recons titution 2 pkt, Route: PO, Drug Form: PDR/REC, Dosing Weight 92, kg, PRN, PRN Abnormal La b Result, For NON-ICU Patients Only, Start date: 05/27/16 16:31:00 ASSISTANT HEAD CASHIER, Duration : 30 day, Stop date: 06/26/16 17:30:00 CDT Notes: (Same as: Phos-NaK) Each 1.5 gm pkt has 250mg phosphorous. Mix w/2.5oz w ater and stir. Start Date: 05/27/16 Stop Date: 05/28/16 Status: Discontinued Saline Flush 0.9% 10 ml, Route: IVP, Drug Form: INJ, Dosing Weight 92, kg, PRN, PRN Line Flush, St art date: 05/27/16 14:59:00 ASSISTANT HEAD CASHIER, Duration: 30 day, Stop date: 06/26/16 15:58:00 CDT Notes: (Same as: BD Posiflush) Start Date: 05/27/16 Stop Date: 05/28/16 Status: Discontinued Saline Flush 0.9% 10 ml, Route: IVP, Drug Form: INJ, Dosing Weight 92, kg, Q12H, Start date: 05/27 21:00:00 ASSISTANT HEAD CASHIER, Duration: 30 day, Stop date: 06/26/16 9:00:00 CDT Notes: (Same as: BD Posiflush) Start Date: 05/27/16 Stop Date: 05/28/16 Status: Discontinued simvastatin 40 mg, 1 tab, Route: PO, Drug form: TAB, Bedtime, Dosing Weight 92, kg, Start da te: 05/27/16 21:00:00 ASSISTANT HEAD CASHIER, Duration: 30 day, Stop date: 06/25/16 21:00:00 CDT Notes: (Same as: Zocor) Start Date: 05/27/16 Stop Date: 05/28/16 Status: Discontinued simvastatin 40 mg oral tablet 40 mg=1 tab, PO, Bedtime, # 90 tab, 3 Refill(s) Start Date: 05/28/16 Status: Ordered simvastatin 40 mg oral tablet 40 mg=1 tab, PO, Bedtime, # 90 tab, 1 Refill(s) Start Date: 05/27/16 Stop Date: 05/28/16 Status: Discontinued Sodium Chloride 0.9% (Bolus) IV 250 mL, 250 ml/hr, Infuse Over: 1 hr, Route: IV, 250, Drug form: INJ, ONCALL, Pr iority: Routine, kg, Start date: 05/27/16 12:00:00 ASSISTANT HEAD CASHIER, Duration: 1 doses or marcia es, Stop date: 05/28/16 0:00:00 ASSISTANT HEAD CASHIER Start Date: 05/27/16 Stop Date: 05/27/16 Status: Completed sodium chloride 0.9% 1000 ml INJ 1,000 mL 1,000 mL, Rate: 75 ml/hr, Infuse over: 13.3 hr, Route: IV, Dosing Weight 92 kg, Total Volume: 1,000, Start date: 05/27/16 15:24:00 ASSISTANT HEAD CASHIER, Duration: 30 day, Stop d ate: 06/26/16 15:23:00 CDT Start Date: 05/27/16 Stop Date: 05/28/16 Status: Discontinued sodium chloride 0.9% 1000 ml INJ 750 mL 750 mL, Rate: 75 ml/hr, Infuse over: 10 hr, Route: IV, Total Volume: 750, Start date: 05/27/16 11:06:00 ASSISTANT HEAD CASHIER, Duration: 24 hr, Stop date: 05/28/16 11:05:00 ASSISTANT HEAD CASHIER Start Date: 05/27/16 Stop Date: 05/28/16 Status: Discontinued sodium phosphate + sodium chloride 0.9% INJ 250 mL 15 mmol, 5 mL, Route: IVPB, PRN, Dosing Weight 92, kg, PRN Abnormal Lab Result, For NON-ICU Patients Only., Start date: 05/27/16 16:31:00 ASSISTANT HEAD CASHIER, Duration: 30 day, Stop date: 06/26/16 17:30:00 CDT Start Date: 05/27/16 Stop Date: 05/28/16 Status: Discontinued sodium phosphate + sodium chloride 0.9% INJ 250 mL 30 mmol, 10 mL, Route: IVPB, PRN, Dosing Weight 92, kg, PRN Abnormal Lab Result, For NON-ICU Patients Only., Start date: 05/27/16 16:31:00 ASSISTANT HEAD CASHIER, Duration: 30 day, Stop date: 06/26/16 17:30:00 CDT Start Date: 05/27/16 Stop Date: 05/28/16 Status: Discontinued Results BLOOD BANK RESULTS 1 2 3 Most recent to oldest [Reference Range]: AB POS *Unknown* (05/27/16 11:08 AM) ABO/Rh Negative (05/27/16 11:08 AM) Antibody Scrn Product available (05/27/16 12:44 PM) FFP product Product available (05/27/16 12:44 PM) RBC product ELECTROLYTES 1 2 3 Most recent to oldest [Reference Range]: 139 mEq/L (05/28/16 2:50 AM) 137 mEq/L (05/27/16 2:34 PM) 138 mEq/L (05/27/16 11:08 AM) Sodium Lvl [135-145 mEq/L] 3.8 mEq/L (05/28/16 2:50 AM) 4.1 mEq/L (05/27/16 2:34 PM) 3.8 mEq/L (05/27/16 11:08 AM) Potassium Lvl [3.5-5.1 mEq/L] 104 mEq/L (05/28/16 2:50 AM) 106 mEq/L (05/27/16 2:34 PM) 102 mEq/L (05/27/16 11:08 AM) Chloride Lvl [95-109 mEq/L] 23 mEq/L *LOW* (05/28/16 2:50 AM) 22 mEq/L *LOW* (05/27/16 2:34 PM) 27 mEq/L (05/27/16 11:08 AM) CO2 [24-32 mEq/L] 15.8 mEq/L (05/28/16 2:50 AM) 13.1 mEq/L (05/27/16 2:34 PM) 12.8 mEq/L (05/27/16 11:08 AM) AGAP [10.0-20.0 mEq/L] CHEM PANEL 1 2 3 Most recent to oldest [Reference Range]: 0.63 mg/dL (05/28/16 2:50 AM) 0.73 mg/dL (05/27/16 2:34 PM) 0.86 mg/dL (05/27/16 11:08 AM) Creatinine Lvl [0.50-1.40 mg/dL] 97 mL/min/1.73m2 1 *NA* (05/28/16 2:50 AM) 91 mL/min/1.73m2 2 *NA* (05/27/16 2:34 PM) 85 mL/min/1.73m2 3 *NA* (05/27/16 11:08 AM) eGFR 7 mg/dL (05/28/16 2:50 AM) 6 mg/dL *LOW* (05/27/16 2:34 PM) 7 mg/dL (05/27/16 11:08 AM) BUN [7-22 mg/dL] 113 mg/dL *HI* (05/28/16 2:50 AM) 123 mg/dL *HI* (05/27/16 2:34 PM) 145 mg/dL *HI* (05/27/16 11:08 AM) Glucose Lvl [70-99 mg/dL] 4.3 g/dL (05/27/16 11:08 AM) Albumin Lvl [3.5-5.0 g/dL] 9.3 mg/dL (05/28/16 2:50 AM) 8.4 mg/dL *LOW* (05/27/16 2:34 PM) 9.3 mg/dL (05/27/16 11:08 AM) Calcium Lvl [8.5-10.5 mg/dL] 3.4 mg/dL (05/28/16 2:50 AM) 3.3 mg/dL (05/27/16 2:34 PM) Phosphorus [2.5-4.5 mg/dL] 2.3 mg/dL (05/28/16 2:50 AM) 1.7 mg/dL *LOW* (05/27/16 2:34 PM) Magnesium Lvl [1.8-2.4 mg/dL] 1Result Comment: The eGFR is calculated using the [...] from the National Kidney Disease Education Program ( NKDEP) which additionally recommends that when the eGFR is used in patients with extremes of body mass index for purposes of drug dosing, the eGFR should be mul tiplied by the estimated BMI. 2Result Comment: The eGFR is calculated using the [...] from the National Kidney Disease Education Program ( NKDEP) which additionally recommends that when the eGFR is used in patients with extremes of body mass index for purposes of drug dosing, the eGFR should be mul tiplied by the estimated BMI. 3Result Comment: The eGFR is calculated using the [...] from the National Kidney Disease Education Program ( NKDEP) which additionally recommends that when the eGFR is used in patients with extremes of body mass index for purposes of drug dosing, the eGFR should be mul tiplied by the estimated BMI. PARATHYROID PROFILE 1 2 3 Most recent to oldest [Reference Range]: 1.12 mMol/L (05/28/16 2:50 AM) 1.09 mMol/L (05/27/16 2:34 PM) Ca Ion WB [1.05-1.25 mMol/L] 1.12 mMol/L (05/28/16 2:50 AM) 1.08 mMol/L (05/27/16 2:34 PM) Ca Norm WB [1.05-1.25 mMol/L] HEMATOLOGY 1 2 3 Most recent to oldest [Reference Range]: 7.2 K/CMM (05/28/16 2:50 AM) 5.8 K/CMM (05/27/16 2:34 PM) 6.3 K/CMM (05/27/16 11:08 AM) WBC [3.7-10.4 K/CMM] 4.01 M/CMM *LOW* (05/28/16 2:50 AM) 3.76 M/CMM *LOW* (05/27/16 2:34 PM) 4.47 M/CMM *LOW* (05/27/16 11:08 AM) RBC [4.70-6.10 M/CMM] 13.1 g/dL *LOW* (05/28/16 2:50 AM) 12.3 g/dL *LOW* (05/27/16 2:34 PM) 14.1 g/dL (05/27/16 11:08 AM) Hgb [14.0-18.0 g/dL] 36.7 % *LOW* (05/28/16 2:50 AM) 34.3 % *LOW* (05/27/16 2:34 PM) 41.2 % *LOW* (05/27/16 11:08 AM) Hct [42.0-54.0 %] 91.6 fL (05/28/16 2:50 AM) 91.2 fL (05/27/16 2:34 PM) 92.3 fL (05/27/16 11:08 AM) MCV [80.0-94.0 fL] 32.7 pg *HI* (05/28/16 2:50 AM) 32.6 pg *HI* (05/27/16 2:34 PM) 31.5 pg *HI* (05/27/16 11:08 AM) MCH [27.0-31.0 pg] 35.6 g/dL (05/28/16 2:50 AM) 35.8 g/dL (05/27/16 2:34 PM) 34.2 g/dL (05/27/16 11:08 AM) MCHC [32.0-36.0 g/dL] 13.0 % (05/28/16 2:50 AM) 12.9 % (05/27/16 2:34 PM) 13.1 % (05/27/16 11:08 AM) RDW [11.5-14.5 %] 159 K/CMM (05/28/16 2:50 AM) 137 K/CMM (05/27/16 2:34 PM) 179 K/CMM (05/27/16 11:08 AM) Platelet [133-450 K/CMM] 9.2 fL (05/28/16 2:50 AM) 8.6 fL (05/27/16 2:34 PM) 8.3 fL (05/27/16 11:08 AM) MPV [7.4-10.4 fL] 74.8 % (05/28/16 2:50 AM) 68.1 % (05/27/16 2:34 PM) 62.1 % (05/27/16 11:08 AM) Segs [45.0-75.0 %] 14.7 % *LOW* (05/28/16 2:50 AM) 22.1 % (05/27/16 2:34 PM) 25.8 % (05/27/16 11:08 AM) Lymphocytes [20.0-40.0 %] 8.6 % (05/28/16 2:50 AM) 6.6 % (05/27/16 2:34 PM) 8.1 % (05/27/16 11:08 AM) Monocytes [2.0-12.0 %] 1.3 % (05/28/16 2:50 AM) 2.6 % (05/27/16 2:34 PM) 3.2 % (05/27/16 11:08 AM) Eosinophils [0.0-4.0 %] 0.6 % (05/28/16 2:50 AM) 0.6 % (05/27/16 2:34 PM) 0.8 % (05/27/16 11:08 AM) Basophils [0.0-1.0 %] 5.4 K/CMM (05/28/16 2:50 AM) 4.0 K/CMM (05/27/16 2:34 PM) 3.9 K/CMM (05/27/16 11:08 AM) Segs-Bands # [1.5-8.1 K/CMM] 1.1 K/CMM (05/28/16 2:50 AM) 1.3 K/CMM (05/27/16 2:34 PM) 1.6 K/CMM (05/27/16 11:08 AM) Lymphocytes # [1.0-5.5 K/CMM] 0.6 K/CMM (05/28/16 2:50 AM) 0.4 K/CMM (05/27/16 2:34 PM) 0.5 K/CMM (05/27/16 11:08 AM) Monocytes # [0.0-0.8 K/CMM] 0.1 K/CMM (05/28/16 2:50 AM) 0.2 K/CMM (05/27/16 2:34 PM) 0.2 K/CMM (05/27/16 11:08 AM) Eosinophils # [0.0-0.5 K/CMM] 0.1 K/CMM (05/27/16 11:08 AM) Basophils # [0.0-0.2 K/CMM] 15.0 seconds *HI* (05/28/16 2:50 AM) 15.3 seconds *HI* (05/27/16 11:08 AM) PT [12.0-14.7 seconds] 1.16 (05/28/16 2:50 AM) 1.18 *HI* (05/27/16 11:08 AM) INR [0.85-1.17] 246 seconds *NA* (05/27/16 1:37 PM) 296 seconds *NA* (05/27/16 1:00 PM) POC Activated Clotting Time 30.3 seconds (05/28/16 2:50 AM) 28.2 seconds (05/27/16 11:08 AM) PTT [22.9-35.8 seconds] Immunizations No data available for this section Procedures Procedure Date Related Diagnosis Body Site CABG x 3 - Coronary artery bypass grafts x 3 2001 CABG x 2 - Coronary artery bypass grafts x 2 1988 Social History Social History Type Response Smoking Status Never smoker; Ready to change: No; Concerns about tobacco use in household: No; Exposure to Tobacco Smoke None; Cigarette Smoking Last 365 Days No; Reg Smoking Cessation Counseling No Assessment and Plan Extracted from: Title: CCU Discharge Summary * Author: Rajeev Can MD Date: 05/28/16 Patient: TABBY BELLA Age: 76 years Sex: Male : 1940 Associated Diagnoses: None Author: Rajeev Can MD DEPARTMENT OF CARDIOLOGY CCU DISCHARGE SUMMARY NAME: TABBY BELLA : 1940 ADMISSION DATE: 05/27/2016 DISCHARGE DATE: 05/28/2016 ADMISSION DIAGNOSES: -AAA, symptomatic - s/p EVAR -CAD - s/p CABG x2 -Hypothryoidism -HTN FINAL DIAGNOSIS: -AAA, symptomatic - s/p EVAR -CAD - s/p CABG x2 -HFrEF -Hypothryoidism -HTN HOSPITAL COURSE Mr. 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 He is originally from [facility] and follows with a Dr. Bartolo Thomas (Court Attendant) for his cardiac issues. He was found to have a slowly enlarging AAA from 4.4x4.4cm to 5.1x5.0 on a recent CTA. He was also starting to develop symptoms of abdominal pain radiating to the back and cold lower extremities for the past 12 months. He was referred to [facility] for EVAR. He denies any smoking history in the past. He is s/p the procedure 05/27. Currently with no complaints. He denies chest pain, SOB, N/V, orthopnea, EDGE, LE pain or edema. Repeat BMP in the morning showed stable electrolytes and Mechanic 0.63. Echo done during this admission found LVEF to be 40-45%, which was unchanged from previous. He was briefly on nicardipine drip for BP control, but after uptitration of his medications, his BP was well controlled and the drip was weaned. He will be maintained on coreg 12.5, lisinopril 40. He will continue to be on DAPT for 3 months. He will be discharged to follow up with his bill poster installer, Dr. Thomas in 2-4 weeks. He will also require follow up with Dr. Bruce in 2 months with a CTA pre- clinic to evaluate the EVAR. CONSULTS: None PROCEDURES: EVAR. DISCHARGE CONDITION: Stable DISPOSITION: Home DISCHARGE DIET: Cardiac DISCHARGE ACTIVITY: As Tolerated DISCHARGE MEDICATIONS: Prescribed aspirin: 81 mg, 1 tab, PO, Daily, 90 tab, 3 Refill(s). carvedilol: 12.5 mg, 1 tab, PO, Daily, 90 tab, 3 Refill(s). clopidogrel: 75 mg, 1 tab, PO, Daily, 90 tab, 3 Refill(s). levothyroxine: 25 microgram, 1 tab, PO, Daily, 90 tab, 3 Refill(s). lisinopril: 40 mg, 2 tab, PO, Daily, 90 tab, 3 Refill(s). simvastatin: 40 mg, 1 tab, PO, Bedtime, 90 tab, 3 Refill(s). FOLLOW UP: Dr. Thomas - [address] Bruce - 2 months ADMIT ATTENDING: MARQUIS BRUCE MD DISCHARGE ATTENDING: MARQUIS BRUCE MD Results Review General results Labs (Last four charted values) WBC 7.2(MAY 28)5.8(MAY 27)6.3(MAY 27) Hgb L 13.1(MAY 28)L 12.3(MAY 27)14.1(MAY 27) Hct L 36.7(MAY 28)L 34.3(MAY 27)L 41.2(MAY 27) Plt 159(MAY 28)137(MAY 27)179(MAY 27) Na 139(MAY 28)137(MAY 27)138(MAY 27) K 3.8(MAY 28)4.1(MAY 27)3.8(MAY 27) CO2 L 23(MAY 28)L 22(MAY 27)27(MAY 27) Cl 104(MAY 28)106(MAY 27)102(MAY 27) Cr 0.63(MAY 28)0.73(MAY 27)0.86(MAY 27) BUN 7(MAY 28)L 6(MAY 27)7(MAY 27) Glucose Random H 113(MAY 28)H 123(MAY 27)H 145(MAY 27) Mg 2.3(MAY 28)L 1.7(MAY 27) Phos 3.4(MAY 28)3.3(MAY 27) Ca 9.3(MAY 28)L 8.4(MAY 27)9.3(MAY 27) PT H 15.0(MAY 28)H 15.3(MAY 27) INR 1.16(MAY 28)H 1.18(MAY 27) PTT 30.3(MAY 28)28.2(MAY 27) Physical Examination VS/Measurements Measurements from flowsheet : Measurements 05/27/2016 14:44 Heparin Dosing Weight (kg) 79.22 05/27/2016 14:43 Height 175.26 cm Height Collection Method Stated Weight 92 kg Dosing Weight Difference Percent -0.784 % Dosing Weight Collection Method Measured Body Surface Area 2.1163 m2 Body Mass Index 29.95 m2 05/27/2016 11:06 Heparin Dosing Weight (kg) 79.51 05/27/2016 11:06 Height 175.26 cm Height Collection Method Stated Weight 92.727 kg Dosing Weight Collection Method Measured Body Surface Area 2.1247 m2 Body Mass Index 30.19 m2 , Vital Signs (last 24 hrs) Last Charted Temp Nxtxxzqv83.6 DegF (MAY 28 12:00) Heart Rate Vwbctd12 bpm (MAY 28 12:) Resp Rate H 25BRMIN (MAY 28:) SBP98 mmHg (MAY 28:) DBPL 53mmHg (MAY 28:) ItE863 % (MAY 28:) Todrye18 kg (MAY 27 14:43) Vaabju770.26 cm (MAY 27 14:43) BMI29.95 (MAY 27 14:43) Addendum I have seen and examined the patient with the Resident/Fellow. by I agree with the findings and plans above except for the following: Marquis Bruce MD on 05/29/2016 18:47 Extracted from: Title: CCU Progress Note * Author: Rajeev Can MD Date: 05/28/16 Patient: TABBY BELLA Age: 76 years Sex: Male : 1940 Associated Diagnoses: None Author: Rajeev Can MD Basic Information Mr. 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 He is originally from [facility] and follows with a Dr. Bartolo Thomas (Court Attendant) for his cardiac issues. He was found to have a slowly enlarging AAA from 4.4x4.4cm to 5.1x5.0 on a recent CTA. He was also starting to develop symptoms of abdominal pain radiating to the back and cold lower extremities for the past 12 months. He was referred to [facility] for EVAR. He denies any smoking history in the past. He is s/p the procedure 05/27. Currently with no complaints. He denies chest pain, SOB, N/V, orthopnea, EDGE, LE pain or edema. 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 Started on cardeine drip for SBP > 170s. Uptitrated coreg and lisinopril. Currently with no complaints. Denies CP/SOB/N/V/D/C. Having good urine output. Could not sleep well last night due to new environment. Health Status Allergies: Allergic Reactions (Selected) Severity Not Documented NKDA- No reactions were documented. Objective Meds Scheduled Meds (8):aspirin, carvedilol, clopidogrel (Plavix), heparin, levothyroxine, lisinopril, simvastatin, sodium chloride (Saline Flush 0.9%) Unscheduled Meds: None PRN Meds (15):calcium gluconate + sodium chloride 0.9% INJ 100 mL, calcium gluconate + sodium chloride 0.9% INJ 80 mL, magnesium oxide, magnesium sulfate, magnesium sulfate, nystatin topical (nystatin topical 100,000 units/g powder), potassium chloride, potassium chloride, potassium chloride, potassium phosphate + sodium chloride 0.9% INJ 250 mL, potassium phosphate + sodium chloride 0.9% INJ 250 mL, potassium phosphate-sodium phosphate (potassium phosphate-sodium phosphate 250 mg-280 mg-160 mg oral powder for reconstitution), sodium chloride (Saline Flush 0.9%), sodium phosphate + sodium chloride 0.9% INJ 250 mL, sodium phosphate + sodium chloride 0.9% INJ 250 mL One Time Meds (6):(Completed) Sodium Chloride 0.9% IV (NS (Bolus) IV), (Completed) carvedilol, (Completed) carvedilol (Coreg), (Completed) labetalol, (Completed) lisinopril, (Completed) lisinopril Continuous Infusions (3):niCARdipine 40 mg/ NS 200 ml IV Soln (premix) 40 mg, sodium chloride 0.9% 1000 ml INJ 1,000 mL, sodium chloride 0.9% 1000 ml INJ 750 mL I&O Input/Output RecordInOutBal 04/2823hr Tot 1270 2200 -930 04/2723hr Tot 0 0 0 VS/Measurements Measurements from flowsheet : Measurements 05/27/2016 14:44 Heparin Dosing Weight (kg) 79.22 05/27/2016 14:43 Height 175.26 cm Height Collection Method Stated Weight 92 kg Dosing Weight Difference Percent -0.784 % Dosing Weight Collection Method Measured Body Surface Area 2.1163 m2 Body Mass Index 29.95 m2 05/27/2016 11:06 Heparin Dosing Weight (kg) 79.51 05/27/2016 11:06 Height 175.26 cm Height Collection Method Stated Weight 92.727 kg Dosing Weight Collection Method Measured Body Surface Area 2.1247 m2 Body Mass Index 30.19 m2 , Vital Signs (last 24 hrs) Last Charted Temp Oral99 DegF (MAY 28 04:) Heart Rate Imjhgd71 bpm (MAY 28 04:) Resp Rate L 11BRMIN (MAY 28:) WGA242 mmHg (MAY 28:) DBP69 mmHg (MAY 28 04:) FdK400 % (MAY 28:) Zsvbuf40 kg (MAY 27 14:43) Egqapj978.26 cm (MAY 27 14:43) BMI29.95 (MAY 27 14:43) General: Alert and oriented, No acute distress. Eye: R eye non reactive. EOM intact. HENT: Normocephalic, Normal hearing, Oral mucosa is moist, No pharyngeal erythema. Neck: Supple, Non-tender. Respiratory: Lungs are clear to auscultation, Respirations are non-labored. Cardiovascular: Normal rate, Regular rhythm, No murmur, No gallop. Gastrointestinal: Soft, Non-tender, Non-distended. Lymphatics: No lymphadenopathy neck, axilla, groin. Musculoskeletal No tenderness. No swelling. Integumentary: Warm. Neurologic: Alert, Oriented. Psychiatric: Cooperative. Review / Management Results review: Labs (Last four charted values) WBC 7.2(MAY 28)5.8(MAY 27)6.3(MAY 27) Hgb L 13.1(MAY 28)L 12.3(MAY 27)14.1(MAY 27) Hct L 36.7(MAY 28)L 34.3(MAY 27)L 41.2(MAY 27) Plt 159(MAY 28)137(MAY 27)179(MAY 27) Na 139(MAY 28)137(MAY 27)138(MAY 27) K 3.8(MAY 28)4.1(MAY 27)3.8(MAY 27) CO2 L 23(MAY 28)L 22(MAY 27)27(MAY 27) Cl 104(MAY 28)106(MAY 27)102(MAY 27) Cr 0.63(MAY 28)0.73(MAY 27)0.86(MAY 27) BUN 7(MAY 28)L 6(MAY 27)7(MAY 27) Glucose Random H 113(MAY 28)H 123(MAY 27)H 145(MAY 27) Mg 2.3(MAY 28)L 1.7(MAY 27) Phos 3.4(MAY 28)3.3(MAY 27) Ca 9.3(MAY 28)L 8.4(MAY 27)9.3(MAY 27) PT H 15.0(MAY 28)H 15.3(MAY 27) INR 1.16(MAY 28)H 1.18(MAY 27) PTT 30.3(MAY 28)28.2(MAY 27). Impression and Plan The patient was seen and examined by me with the resident/VEGETABLE HARVEST MACHINE OPERATOR/PA and I agree with the History/Exam documented. Mr. 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 Problem List -AAA, symptomatic - s/p EVAR -CAD - s/p CABG x2 -Hypothryoidism -HTN ==NEURO== No acute issues. 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 -Continue ASA 81, Plavix for at least 3 months. -KUB in AM to assess endograft positioning -Will need CT angio 2mo, 12mo post EVAR -Will monitor for endoleak, systemic complications. -Strict BP control. MAP goal <70 #CABG x2 - 1988, 2001 -Resume home ASA, coreg, simvastatin. -Will hold ACEi for now. Restart after re-assessing renal function -TTE #HTN -Coreg 12.5, lisinopril 20. Uptitrate as needed -Wean cardeine drip as tolerated. ==RESP== No issues ==GI== -Heart healthy ==RENAL/ELECTROLYTES== -S/P post procedural hydration. -No issues ==HEME/ID== No issues ==ENDO== Hypothryoid: Resume synthroid ppx: heparin sq code: full dispo: pending clinical improvement. [facility] Addendum I have seen and examined the patient with the Resident/Fellow. by I agree with the findings and plans above except for the following: Marquis Bruce MD on 05/29/2016 18:48 Extracted from: Title: EVAR procedure report Author: Jonathan Myers MD PHD Date: 05/27/16 DATE OF OPERATION/PROCEDURE: 05/19/2016 REFERRING PROVIDER: Dr. Bartolo Auguste PROCEDURES PERFORMED: 1. Endovascular aneurysm repair of infrarenal abdominal aortic aneurysm 2. Successful closure of the right femoral arteriotomy site with Perclose proglide closure device 6 3. Successful closure of the left femoral arteriotomy site with Perclose proglide closure device 1 3. Abdominal aortic angiography with runoff to bilateral iliofemoral arteries. INDICATIONS FOR PROCEDURE: Mr. Bella is a 76-year-old male with symptomatic expanding infrarenal 5.1 cm AAA. PREPROCEDURE DIAGNOSIS: 5.1 cm infrarenal expanding symptomatic AAA POSTPROCEDURE DIAGNOSIS: Successful endovascular aneurysm repair or infrarenal abdominal aortic aneurysm. OPERATORS: 1. Interventional cardiology attending Court Attendant, Dr. Marquis Bruce 2. Interventional dust control engineer: Dr. Jonathan Myers 3. Interventional cardiology attending Dr. Blas Olivia FLUORO TIME: 19.7 minutes RADIATION DOSE: 1156.33 mGy TOTAL CONTRAST USED: 128 mls of Visipaque contrast IVFs: 600 mls crystaloids EBL ~50 cc. IMPRESSION: Successful endovascular aneurysm repair or infrarenal abdominal aortic aneurysm PLAN: - Patient will go to the CCU for 23 hour observation - Aspirin 81 mg and Plavix 75 mg daily for 3 months - Follow-up in Dr. Marquis Bruce's clinic in 2 months after discharge with CTA of the abdominal aorta performed prior to follow-up PROCEDURE NOTE: After obtaining informed consent, patient was brought to the cardiac catheterization laboratory where patient was placed under monitored anesthesia. The patient was prepped and draped in normal sterile fashion. After this, using 40 mL of 1% Xylocaine, both groins were locally anesthetized. Using a micropuncture kit and modified Seldinger technique, two 6-Mozambican sheaths were placed in the bilateral common femoral arteries without difficulty. Also right femoral vein 6 Mozambican sheath was placed for the use of anesthesia services as a central line. Preclosure of the right arteriotomy site was performed with Perclose proglide 2. After this pre-closure of the left femoral arteriotomy site was performed with Perclose proglide 1. The sutures were placed on the side. IV heparin was used for anti coagulation to keep ACT above 250 throughout the case. 6 Mozambican right femoral artery sheath was exchanged over the wire into 16 Mozambican 28 cm Littlefield sheath. The left 6 Mozambican arterial sheath was exchanged over the wire into 12 Mozambican 33 cm Littlefield sheat. Then marker pigtail was inserted over the wire via right femoral sheath for sizing of the AAA endograft. Abdominal aortic angiogram was performed with digital subtraction. Then Warren wire was inserted through the pigtail catheter and the pigtail catheter was removed. Next a 4 Mozambican JR4 catheter was inserted over a storq wire via left femoral sheath, was used to brenna the left renal artery takeoff. Next 26 mm x 12 mm x 16 cm bifurcated Littlefield excluder device was deployed in the infrarenal aorta with the right iliac limb still undeployed. After that JR4 catheter was pulled back into the proximal left iliac artery and was used to engage left iliac limb with the Storq wire. Storq wire was then passed into the proximal descending aorta. After this Warren wire was exchanged into the Storq wire on the right side. Then pigtail catheter was advanced over the left side of Storq wire to insure that the wire position is inside the excluder and not between the aortic portion of the excluder and the wall of the aorta. Then 16 mm x 12 mm x 12 cm Littlefield excluder was deployed as a left iliac limb. Subsequently a right iliac limb part of the 26 mm bifurcated Littlefield excluder was deployed. Of note distal edges of both left and right iliac limbs were sectioned above the the takeoff of the internal iliac arteries. After this main body and right iliac limb were postdilated with 50 x 65 mm Littlefield stent graft balloon under fluoroscopic guidance. Then left iliac limb was was dilated with Littlefield stent graft balloon under fluoroscopic guidance. After this marker pigtail catheter was reintroduced into the descending aorta and the final abdominal aortic angiogram was performed showing excellent position of the endovascular prosthesis. The right 16 Mozambican sheath was removed and previously mentioned Perclose proglide sutures were used to achieve hemostasis, however the hemostasis was incomplete and 4 additional Perclose Proglide closure devices were utilized. After this left femoral 12 Mozambican sheath was removed with Perclose proglide x 1 used for hemostasis. Next 2-0 Monocryl sutures were used to perform interrupted vertical and running horizontal stitches to close the bilateral skin incision sites. The patient tolerated the procedure well under moderate sedation throughout and was transferred to her inpatient room in stable condition. Dr. Marquis Bruce was present for the entire procedure and performed critical portions of the procedure Extracted from: Title: CCU Admission H&P * Author: Rajeev Can MD Date: 05/27/16 Impression and Plan Mr. 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 Problem List -AAA, symptomatic - s/p EVAR -CAD - s/p CABG x2 -Hypothryoidism ==NEURO== No acute issues. 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 -Will resume ASA -KUB in AM to assess endograft positioning -Will need CT angio 1mo, 12mo post EVAR -Will monitor for endoleak, systemic complications. -Strict BP control. MAP goal <70 #CABG x2 - 1988, 2001 -Resume home ASA, coreg, simvastatin. -Will hold ACEi for now. Restart after re-assessing renal function -TTE ==RESP== No issues ==GI== -CLD. Advance as tolerated ==RENAL/ELECTROLYTES== -Post procedural hydration. ==HEME/ID== No issues ==ENDO== Hypothryoid: Resume synthroid ppx: heparin sq code: full dispo: pending clinical improvement.
--- OUTSIDE RECORDS SUMMARY | 2018-02-17 10:54 | XMS REPORT | Summary of Care ---
Author Author [facility] Organization [facility] Address Unknown Phone Unavailable Encounter TOOTIE Mehta(PINKY) [id number] Date(s): 08/21/16 - 08/21/16 [facility] [address] [employer] provided by [employer] [facility] [place] [address]- Discharge Disposition: Home or Self Care Attending Physician: Darnell Bruce MD Referring Physician: Darnell Bruce MD Vital Signs Most recent to 1 oldest [Reference Range]: Height 177.8 cm (08/21/16 9:27 AM) Weight 90.909 kg (08/21/16 9:27 AM) Body Mass Index 28.76 m2 (08/21/16 9:27 AM) Problem List Condition Effective Dates Status Health Status Informant AAA (abdominal Resolved aortic aneurysm)(Confirmed) Coronary artery Resolved disease(Confirmed) Skin Resolved cancer(Confirmed) Allergies, Adverse Reactions, Alerts Substance Reaction Severity Status NKDA Active Medications No data available for this section Results CHEM PANEL Most recent to 1 oldest [Reference Range]: eGFR 92 mL/min/1.73m2 1 *NA* (08/21/16 10:30 AM) POC Creatinine 0.7 mg/dL [0.5-1.4 mg/dL] (08/21/16 10:30 AM) 1Result Comment: The eGFR is calculated using [...] be mul tiplied by the estimated BMI. Immunizations No data available for this section [...] Smoking Cessation Counseling No Assessment and Plan No data available for this section
[2018-02-17 12:03] VITALS: BP 138/70
[2018-02-17] MEDS ORDERED: LEVOFLOXACIN 500MG/D5W 100ML 100 ML IV ONE (12:30)
--- NOTE | 2018-02-17 13:18 | Diagnostic Imaging Report ---
EXAMINATION: Scrotal ultrasound CLINICAL INDICATION: Right testicular pain. COMPARISON: None available. TECHNIQUE: Grayscale and color Doppler evaluation of the scrotum was performed in transverse and longitudinal planes. FINDINGS: The right testicle measures 3.8 x 3.2 x 2.8 cm. No intratesticular mass or calcification. Incidental note of tubular ectasia of the rete testis.. The right epididymis measures 1.6 x 1.5 x 1.3 cm. No nodules or masses.. There is no evidence of right hydrocele or varicocele. There is arterial and venous flow to the right testis by color Doppler and spectral waveform analysis. Perfusion is globally increased relative to the left testis. The left testicle measures 4.2 x 2.8 x 2.2 cm. There is a cystic lesion with multiple internal septations and peripheral echogenic foci within the left testis, with the largest individual cyst measuring 8 mm.. The left epididymis has been removed. There is no evidence of left hydrocele or varicocele. There is normal arterial and venous flow to the left testis by color Doppler and spectral waveform analysis. The scrotum has a normal appearance, without focal lesions. Impression: No sonographic evidence of testicular torsion. Relative hyperemia of the right testis and epididymis suggests epididymo- orchiitis. Cystic left intratesticular lesion is nonspecific with differential considerations including clustered simple cysts or testicular spermatoceles, as well as cystic testicular neoplasm such as teratoma. Urology consultation is suggested. Signed by: Dr. Devendar Benavidez M.D. on 02/17/2018 1:14 PM
== END 2018-02-17 13:35 | disposition home or self-care (01) ==
LOC: FSED 10:51
DX: N50.811 Right testicular pain (principal); N45.1 Epididymitis; N45.2 Orchitis; N39.0 Urinary tract infection, site not specified; I10 Essential (primary) hypertension
CPT/HCPCS: 76870; 80053; 81003; 85025; 99284; J1956

== ENCOUNTER 2019-05-14 11:40 | Observation (INO) | payer MEDICARE, OTHER ==
[~2019-05-14] VITALS: Ht 175.3 cm; Wt 89.4 kg
--- OUTSIDE RECORDS SUMMARY | 2019-05-14 11:42 | XMS REPORT ---
Author Author [facility] Address Unknown Phone Unavailable Care Team Providers Care Rehab Manager Name Role Phone Brittney FUNK Unavailable Unavailable Problems This patient has no known problems. Allergies, Adverse Reactions, Alerts This patient has no known allergies or adverse reactions. Medications This patient has no known medications. Results Test Description Test Time Test Comments Text Results Atomic Results Result Comments TESTICULAR-HOPD 2018-02-17 13:06:00 [place] [address] Patient Name: TABBY BELLA MR #: [id number] : 1940 Age/Sex: 77/M Req #: [id number] [facility] Physician: Ordered by: NARDA FUNK MD Report #: [id number] Location: [facility] Room/Bed: Procedure: [id number] Exam Date: 02/17/18 Exam Time: 1210 REPORT STATUS: Signed EXAMINATION: Scrotal ultrasound CLINICAL INDICA TION: Right testicular pain. COMPARISON: None available. TECHNIQUE: Grayscale and color Doppler evaluation of the scrotum was performed in transverse and longitudinal planes. FINDINGS: The right testicle measures 3.8 x 3.2 x 2.8 cm. No intratesticular mass or calcification. Incidental note of tubular ectasia of the rete testis.. The right epididymis measures 1.6 x 1.5 x 1.3 cm. No nodules or masses.. There is no evidence of right hydrocele or varicocele. There is arterial and venous flow to the right testis by color Doppler and spectral waveform analysis. Perfusion is globally increased relative to the left testis. The left testicle measures 4.2 x 2.8 x 2.2 cm. There is a cystic lesion with multiple internal septations and peripheral echogenic foci within the left testis, with the largest individual cyst measuring 8 mm.. The left epididymis has been removed. There is no evidence of left hydrocele or varicocele. There is normal arterial and venous flow to the left testis by color Doppler and spectral waveform analysis. The scrotum has a normal appearance, without focal lesions. Impression: No sonographic evidence of testicular torsion. Relative hyperemia of the right testis and epididymis suggests epididymo- orchiitis. Cystic left intratesticular lesion is nonspecific with differential considerations including clustered simple cysts or testicular spermatoceles, as well as cystic testicular neoplasm such as teratoma. Urology consultation is suggested. Signed by: Dr. Davis Esposito M.D. on 02/17/2018 1:14 PM Dictated By: DAVIS ESPOSITO MD [id number] Transcribed By: YOVANY on 02/17/18 1316 COPY TO: NARDA FUNK MD
--- NOTE | 2019-05-14 12:07 | Diagnostic Imaging Report ---
EXAMINATION: PA and lateral views of the chest. COMPARISON: None CLINICAL HISTORY: Cough DISCUSSION: The lungs are well-inflated. Trace bilateral pleural effusions. No consolidation or pneumothorax. Postsurgical changes of the mediastinum include multiple median sternotomy wires and mediastinal surgical clips. Mild enlargement of the cardiac silhouette without overt pulmonary edema. No acute osseous abnormalities. IMPRESSION: Trace bilateral pleural effusions. Postsurgical changes of the mediastinum. Signed by: Dr. Devendra Benavidez M.D. on 05/14/2019 12:04 PM
--- NOTE | 2019-05-14 12:55 | NUR ---
called [facility] for transport
[2019-05-14] MEDS ORDERED: FUROSEMIDE INJ 10 MG/ML 2 ML VIAL IV ONE (13:15)
[2019-05-14] MEDS ORDERED: FUROSEMIDE INJ 10 MG/ML 4 ML VIAL ONE (13:21)
--- NOTE | 2019-05-14 13:55 | NUR ---
REPORT TO EMS
--- NOTE | 2019-05-14 14:08 | NUR ---
Pt received from free standing ER a this time. Pt is admitted for new onset CHF. Pt is aox4 and able to verbalize needs. Pt denies any pain, SOB at this time. Telemetry was placed when pt arrived. Dr. Garnica notified of new consult.
[2019-05-14 14:18] VITALS: BP 153/63
[2019-05-14 16:20] VITALS: BP 153/63
[2019-05-14 16:43] VITALS: BP 153/63
[2019-05-14 19:19] LABS: CREATINE KINASE MB 1.1 ng/mL (0-5.0)
--- NOTE | 2019-05-14 19:20 | NUR ---
received report from day nurse. bedside rounds complete. patient is resting comfortably in bed. bed is in lowest position and call fritz is within reach. will continue to monitor patient.
[2019-05-14 20:00] VITALS: BP 165/74
[2019-05-14 23:29] VITALS: BP 165/71
[2019-05-15] VITALS (8 sets, daily range): BP systolic 128–151; BP diastolic 59–90
[2019-05-15 06:10] LABS: CREATINE KINASE MB 0.9 ng/mL (0-5.0)
[2019-05-15 06:34] LABS: BASOPHILS % 0.4 % (0.0-1.0); EOSINOPHILS # (AUTO) 0.1 (0.0-0.4); EOSINOPHILS % 1.6 % (0.0-6.0); HEMATOCRIT 37.8 % (38.2-49.6); HEMOGLOBIN 12.5 g/dL (14.0-18.0); LYMPHOCYTES # (AUTO) 1.5 (1.0-3.2); LYMPHOCYTES % 29.2 % (18.0-39.1); MEAN CORPUSCULAR HEMOGLOBIN 30.2 pg (28-32); MEAN CORPUSCULAR HGB CONC 33.1 g/dL (31-35); MEAN CORPUSCULAR VOLUME 91.3 fL (81-99); MONOCYTES # (AUTO) 0.6 (0.2-0.8); MONOCYTES % 11.9 % (4.4-11.3); NEUTROPHILS # (AUTO) 2.8 (2.1-6.9); NEUTROPHILS % 56.7 % (38.7-80.0); PLATELET COUNT 180 x10e3/uL (140-360); RED BLOOD COUNT 4.14 x10e6/uL (4.3-5.7); RED CELL DISTRIBUTION WIDTH 13.1 % (11.7-14.4)
--- NOTE | 2019-05-15 06:37 | NUR ---
patient is resting in the bed. bed is in the lowest position and call light is within reach. denies pain or discomfort at this time.
[2019-05-15 06:57] LABS: ALANINE AMINOTRANSFERASE 14 IU/L (0-55); ALBUMIN 3.6 g/dL (3.5-5.0); ALBUMIN/GLOBULIN RATIO 1.2 (0.8-2.0); ALKALINE PHOSPHATASE 55 IU/L (40-150); ANION GAP 14.9 mmol/L (8-16); BLOOD UREA NITROGEN 13 mg/dL (7-26); BUN/CREATININE RATIO 13 (6-25); CALCIUM 8.9 mg/dL (8.4-10.2); CARBON DIOXIDE 22 mmol/L (22-29); CHLORIDE 104 mmol/L (98-107); CREATININE, SERUM 1.04 mg/dL (0.72-1.25); EST GLOMERULAR FILTRATION RATE > 60 ML/MIN (60-); GLUCOSE 115 mg/dL (74-118); POTASSIUM 3.9 mmol/L (3.5-5.1); SODIUM 137 mmol/L (136-145)
[2019-05-15] MEDS ORDERED: DEXTROSE 50% SYRINGE 50 ML IV PRN (09:30)
[2019-05-15] MEDS ORDERED: DOCUSATE SODIUM 100 MG CAP PO PRN (09:45)
[2019-05-15] MEDS ORDERED: ACETAMINOPHEN 325 MG TAB PO PRN (09:45)
[2019-05-15] MEDS ORDERED: ZOLPIDEM TARTRATE 5 MG TAB PO PRN (09:45)
[2019-05-15] MEDS ORDERED: ONDANSETRON HCL INJ 2MG/ML 2ML 2 MG/ML VIAL IV PRN (09:45)
[2019-05-15] MEDS: FUROSEMIDE INJ 10 MG/ML 4 ML VIAL IV SCH (10:00)
[2019-05-15] MEDS: INSULIN REGULAR, HUMAN 100 UNIT/1 ML 3ML VIAL SQ SCH ×3 (11:30→21:26)
[2019-05-15] MEDS: ASPIRIN 81 MG ENTERIC COATED PO SCH (16:36)
[2019-05-15] MEDS: FAMOTIDINE 20 MG TAB PO SCH (16:36)
[2019-05-15] MEDS: LISINOPRIL 10 MG TAB PO SCH (16:37)
[2019-05-15] MEDS ORDERED: ENOXAPARIN SOD INJ 40 MG/0.4 ML SYR SC SCH (17:00)
--- NOTE | 2019-05-15 19:05 | NUR ---
Report given to oncoming nurse of patient's status. Sitting on recliner call light within reach. AAOX4 to time, person, place, situation. Respirations even and unlabored. Denies pain.
[2019-05-15] MEDS ORDERED: SIMVASTATIN 40 MG TAB PO SCH (21:00)
--- NOTE | 2019-05-15 21:38 | Consultation ---
DATE OF CONSULTATION: 05/15/2019 Cardiology Consultation Note Thank you so much for asking me to see this nice man in consultation. Mr. Latif is a complex and elderly 79-year-old man with a complex past medical history. CHIEF COMPLAINT: He presented to the [facility] free-standing emergency room late in the day of the with a complaint of shortness of breath. HISTORY OF PRESENT ILLNESS: The patient has not seen any doctor in almost two years and stopped all of his medications. He has been told before that he has congestive heart failure. PAST MEDICAL HISTORY: Complex with 1st myocardial infarction, probably about 1988 with coronary artery bypass graft surgery with repeat coronary artery bypass graft surgery in 2001. He had covered stent of the abdominal aortic aneurysm in May 2016. He was last seen in our office in October 2017. He is known to have COPD, hypothyroidism. As stated above, he was taking no medications at this time. He previously used: 1. Levothyroxine 25 mcg daily. 2. Simvastatin 40 mg daily. 3. Coreg 12.5 mg once daily. 4. Lisinopril 20 mg once daily. FAMILY HISTORY: Father in his 40s from myocardial infarction. Mother of old age. ALLERGIES: HE HAS NO KNOWN ALLERGIES. PHYSICAL EXAMINATION: GENERAL: At this time shows elderly man, sitting up in a chair, way with dysconjugate gaze. VITAL SIGNS: Blood pressure 135/63. HEAD, EYES, EARS, NOSE, AND THROAT: Otherwise unremarkable. THORAX: There is healed midline sternotomy. HEART: Sounds S1 and S2 are equal. There are prematures. LUNGS: Faint crackles at the bases. ABDOMEN: Protuberant. EXTREMITIES: Have trace pretibial edema. CURRENT LABORATORY STUDIES: Show a glucose of 115, BUN 13, creatinine 1.0. White count 4.9. BNP 662. Lipid profile shows cholesterol 208, HDL 23, and LDL 154. Chest x-ray shows trace bilateral effusions. ASSESSMENT: 1. Congestive heart failure, compounded by negligence. 2. Hyperlipidemia, on no treatment. 3. Previous diagnoses of hypothyroidism. 4. Previous abdominal aortic aneurysm, treated with stenting. 5. Coronary artery disease, treated with coronary artery bypass graft surgery two different times. PLAN: Plan is for medical management and education. MD MARIAMA Sullivan/DEYSI /[phone] cc: Noble Patel MD
[2019-05-16] VITALS: BP 141/82
[2019-05-16 04:00] VITALS: BP 149/79
[2019-05-16] MEDS ORDERED: LEVOTHYROXINE SODIUM 25 MCG TABLET PO SCH (06:00)
[2019-05-16 06:38] LABS: BASOPHILS % 0.6 % (0.0-1.0); EOSINOPHILS # (AUTO) 0.1 (0.0-0.4); EOSINOPHILS % 2.5 % (0.0-6.0); HEMATOCRIT 41.4 % (38.2-49.6); HEMOGLOBIN 13.8 g/dL (14.0-18.0); LYMPHOCYTES # (AUTO) 1.7 (1.0-3.2); LYMPHOCYTES % 34.7 % (18.0-39.1); MEAN CORPUSCULAR HEMOGLOBIN 30.2 pg (28-32); MEAN CORPUSCULAR HGB CONC 33.3 g/dL (31-35); MEAN CORPUSCULAR VOLUME 90.6 fL (81-99); MONOCYTES # (AUTO) 0.5 (0.2-0.8); MONOCYTES % 10.2 % (4.4-11.3); NEUTROPHILS # (AUTO) 2.5 (2.1-6.9); NEUTROPHILS % 51.8 % (38.7-80.0); PLATELET COUNT 199 x10e3/uL (140-360); RED BLOOD COUNT 4.57 x10e6/uL (4.3-5.7); RED CELL DISTRIBUTION WIDTH 13.2 % (11.7-14.4)
--- NOTE | 2019-05-16 06:41 | NUR ---
patient is resting in the bed. bed is in the lowest position and call light is within reach. denies pain or discomfort at this time.
[2019-05-16 06:59] LABS: ANION GAP 15.1 mmol/L (8-16); BLOOD UREA NITROGEN 17 mg/dL (7-26); BUN/CREATININE RATIO 16 (6-25); CALCIUM 9.2 mg/dL (8.4-10.2); CARBON DIOXIDE 24 mmol/L (22-29); CHLORIDE 103 mmol/L (98-107); CREATININE, SERUM 1.08 mg/dL (0.72-1.25); EST GLOMERULAR FILTRATION RATE > 60 ML/MIN (60-); GLUCOSE 113 mg/dL (74-118); POTASSIUM 3.1 mmol/L (3.5-5.1); SODIUM 139 mmol/L (136-145)
[2019-05-16 07:18] VITALS: BP 122/60
[2019-05-16] MEDS: INSULIN REGULAR, HUMAN 100 UNIT/1 ML 3ML VIAL SQ SCH ×2 (07:19→11:30)
[2019-05-16 07:23] LABS: FREE THYROXINE INDEX 2.2428 (1.4-3.8); THYROID STIMULATING HORMONE 6.824 uIU/mL (0.350-4.940)
[2019-05-16] MEDS: FUROSEMIDE INJ 10 MG/ML 4 ML VIAL IV SCH (08:04)
[2019-05-16] MEDS: FAMOTIDINE 20 MG TAB PO SCH (08:04)
[2019-05-16] MEDS: ASPIRIN 81 MG ENTERIC COATED PO SCH (08:05)
[2019-05-16] MEDS: LISINOPRIL 10 MG TAB PO SCH (08:05)
[2019-05-16] MEDS ORDERED: POTASSIUM CHLORIDE 20 MEQ TAB CR PO ONE ×2 (08:15→12:50)
--- NOTE | 2019-05-16 08:53 | NUR ---
44HR OBS PT. SENT TO R1 FOR REVIEW
[2019-05-16 11:19] VITALS: BP 136/63
[2019-05-16] MEDS ORDERED: SIMVASTATIN40 MG PO (12:35)
[2019-05-16] MEDS ORDERED: FUROSEMIDE40 MG PO (12:35)
[2019-05-16] MEDS ORDERED: SYNTHROID50 MCG PO (12:36)
[2019-05-16] MEDS ORDERED: POTASSIUM CHLO10 ME1 PO (12:36)
[2019-05-16] MEDS ORDERED: LISINOPRIL10 MG PO (12:37)
[2019-05-16] MEDS ORDERED: ONDANSETRON HCL 4 MG ORAL DISINTEGRATING TAB PO PRN (13:15)
--- NOTE | 2019-05-16 13:36 | NUR ---
[facility] case account ending in 252 has been reviewed and completed by PAS Physicians. Service Line: Level of Care (LOC) / Admission Status Review Initial patient type was submitted as: IO - Initial Observation PAS Recommendation: IN
--- NOTE | 2019-05-16 13:48 | NUR ---
Patient received KCL 40 MEQ this AM. Clarification received from for orders for second dose of kCL 40mEQ. Per "don't give second dose."
--- NOTE | 2019-05-16 13:56 | NUR ---
Discontinuing PT services since patient is Mod I in functional mobility.Thank you. Addendum: 05/16/19 at 1357 by Barrett pérez PT Amended: Links added.
--- NOTE | 2019-05-16 14:00 | NUR ---
Left AC IV discontinued. No signs of infiltration noted. 2x2 gauze and tape placed. Refused wheelchair. Accompanied by PCT and to personal car. [id number] to time, person, place, situation. Respirations even and unlabored. Denies pain. Discharge instructions, rx, and all personal belongings taken with patient.
== END 2019-05-16 13:59 | disposition home or self-care (01) ==
LOC: FSED 11:40 → ERHOLD 12:33 → MED/SURG3 14:11
PROVIDERS: ADMIT Internal Medicine; ATTEND Internal Medicine
DX: I11.0 Hypertensive heart disease with heart failure (principal); I50.21 Acute systolic (congestive) heart failure; I49.3 Ventricular premature depolarization; R06.09 Other forms of dyspnea; E78.5 Hyperlipidemia, unspecified; E03.9 Hypothyroidism, unspecified; I25.10 Atherosclerotic heart disease of native coronary artery without angina pectoris; Z95.1 Presence of aortocoronary bypass graft
CPT/HCPCS: 36415 ×3; 71046; 80048; 80053 ×2; 80061; 82550 ×2; 82553 ×2; 82948 ×3; 83036; 83880 ×2; 84436; 84443; 84479; 84484 ×2; 85025 ×3; 87400; 93005; 93306; 97161; 99284; G0378 ×3; J1650; J1817; J1940 ×4

== ENCOUNTER 2022-05-08 06:58 | Observation (INO) | payer MEDICARE, OTHER ==
[2022-05-02 14:05] LABS: BASOPHILS # (AUTO) 0.1 (0.0-0.1); EOSINOPHILS # (AUTO) 0.1 (0.0-0.4); EOSINOPHILS % 2.4 % (0.0-6.0); HEMATOCRIT 41.1 % (38.2-49.6); LYMPHOCYTES # (AUTO) 1.1 (1.0-3.2); LYMPHOCYTES % 22.7 % (18.0-39.1); MEAN CORPUSCULAR HEMOGLOBIN 31.5 pg (28-32); MEAN CORPUSCULAR HGB CONC 34.1 g/dL (31-35); MEAN CORPUSCULAR VOLUME 92.4 fL (81-99); MONOCYTES # (AUTO) 0.5 (0.2-0.8); MONOCYTES % 9.7 % (4.4-11.3); NEUTROPHILS # (AUTO) 3.2 (2.1-6.9); PLATELET COUNT 215 x10e3/uL (140-360); RED BLOOD COUNT 4.45 x10e6/uL (4.3-5.7); RED CELL DISTRIBUTION WIDTH 13.2 % (11.7-14.4)
[2022-05-02 14:19] LABS: ANION GAP 12.5 mmol/L (8-16); CALCIUM 9.5 mg/dL (8.4-10.2); CREATININE, SERUM 1.06 mg/dL (0.72-1.25); POTASSIUM 4.5 mmol/L (3.5-5.1)
[~2022-05-08 06:58] MED LIST: FUROSEMIDE40 MG PO; LISINOPRIL10 MG PO; POTASSIUM CHLO10 ME1 PO; SIMVASTATIN40 MG PO; SYNTHROID50 MCG PO
[2022-05-08] MEDS ORDERED: BUPIVACAINE HCL 0.5% INJ 30 ML VIAL INJ ONE (08:31)
[2022-05-08] MEDS ORDERED: LIDOCAINE HCL 1% LOCAL INJ 20 ML VIAL ONE (08:36)
[2022-05-08] MEDS ORDERED: BUPIVACAINE 0.5%/EPI 30 ML SDV INJ ONE (08:36)
[2022-05-08] MEDS ORDERED: ACETAMINOPHEN 1000 MG/100 ML 100 ML IV ONE (09:49)
[2022-05-08] MEDS ORDERED: POVIDONE IODINE 0.05% 0.05 % ML PO ONE (12:19)
[2022-05-08] MEDS ORDERED: ONDANSETRON HCL INJ 2MG/ML 2ML 2 MG/ML VIAL ONE (12:19)
[2022-05-08] MEDS ORDERED: MIDAZOLAM HCL 2 MG/2 ML VIAL ONE (13:01)
[2022-05-08] MEDS ORDERED: KETAMINE HCL INJ 50 MG/ML 10 ML VIAL ONE (13:01)
[2022-05-08] MEDS ORDERED: FENTANYL CITRATE/PF 100MCG/2 ML INJ ONE (13:01)
[2022-05-08] MEDS ORDERED: HYDROCODONE/APAP 7.5MG-325MG 1 EA TAB ONE (14:29)
[2022-05-08 18:12] VITALS: BP 141/77
[2022-05-08 18:45] VITALS: BP 141/77
[2022-05-08 18:55] VITALS: BP 141/77
[2022-05-08 20:00] VITALS: BP 99/57
[2022-05-08] MEDS ORDERED: SIMVASTATIN 40 MG TAB PO SCH (21:00)
[2022-05-08 21:10] VITALS: BP 99/57
[2022-05-09] VITALS: BP 117/80
[2022-05-09 04:00] VITALS: BP 112/59
[2022-05-09] MEDS ORDERED: LEVOTHYROXINE SODIUM 25 MCG TABLET PO SCH (06:00)
[2022-05-09 08:49] VITALS: BP 141/67
[2022-05-09 08:55] VITALS: BP 141/67
[2022-05-09] MEDS ORDERED: LISINOPRIL 10 MG TAB PO SCH (09:00)
[2022-05-09] MEDS ORDERED: FUROSEMIDE 40 MG TAB PO PRN (09:00)
[2022-05-09] MEDS ORDERED: POTASSIUM CHLORIDE 10MEQ EA PO PRN (09:00)
== END 2022-05-09 12:27 | disposition home or self-care (01) ==
LOC: OR 06:58 → PACU V 16:21 → MED/SURG 18:14
PROVIDERS: ADMIT Surgery; ATTEND Surgery
DX: K40.30 Unilateral inguinal hernia, with obstruction, without gangrene, not specified as recurrent (principal); I25.10 Atherosclerotic heart disease of native coronary artery without angina pectoris; Z95.810 Presence of automatic (implantable) cardiac defibrillator; I11.0 Hypertensive heart disease with heart failure; I50.9 Heart failure, unspecified; Z01.818 Encounter for other preprocedural examination; Z20.822 Contact with and (suspected) exposure to COVID-19
CPT/HCPCS: 36415; 49650; 54690; 71046; 80048; 85025; 88307; 93005; C1781; G0378 ×2; J0131; J2001; J2250; J2405; J3010; 88302

== ENCOUNTER 2024-04-25 15:51 | Inpatient (IN) | payer MEDICARE, OTHER ==
[~2024-04-25] VITALS: Ht 175.3 cm; Wt 86.6 kg
[2024-04-25] MEDS ORDERED: IOPAMIDOL 370 MG/ML 100 ML INFUS..BTL INJ ONE (17:54)
[2024-04-25] MEDS: ONDANSETRON HCL INJ 2MG/ML 2ML 2 MG/ML VIAL IV STA (18:00)
[2024-04-25] MEDS: FAMOTIDINE 20 MG/2 ML VIAL IV STA (18:00)
[2024-04-25 23:54] VITALS: PULSE 73; RESP 18; TEMP 98.5
[2024-04-26] VITALS (8 sets, daily range): BP systolic 101–119; BP diastolic 46–68; PULSE 79–88; RESP 17–20; TEMP 97.2–97.7; O2SAT 95–99
[2024-04-26] MEDS ORDERED: ONDANSETRON HCL INJ 2MG/ML 2ML 2 MG/ML VIAL IV PRN
[2024-04-26] MEDS ORDERED: ASPIRIN 81 MG CHEW TAB PO ONE (00:15)
[2024-04-26] MEDS: FUROSEMIDE INJ 10 MG/ML 4 ML VIAL IV SCH (00:29)
[2024-04-26 07:56] LABS: BASOPHILS % 0.8 % (0.0-1.0); EOSINOPHILS % 0.3 % (0.0-6.0); HEMOGLOBIN 10.4 g/dL (14.0-18.0); LYMPHOCYTES # (AUTO) 0.9 (1.0-3.2); LYMPHOCYTES % 22.5 % (18.0-39.1); MEAN CORPUSCULAR HEMOGLOBIN 28.9 pg (28-32); MEAN CORPUSCULAR HGB CONC 30.6 g/dL (31-35); MEAN CORPUSCULAR VOLUME 94.4 fL (81-99); MONOCYTES # (AUTO) 0.4 (0.2-0.8); MONOCYTES % 10.6 % (4.4-11.3); NEUTROPHILS # (AUTO) 2.4 (2.1-6.9); NEUTROPHILS % 64.2 % (38.7-80.0); PLATELET COUNT 123 x10e3/uL (140-360); RED CELL DISTRIBUTION WIDTH 18.1 % (11.7-14.4); WHITE BLOOD COUNT 3.77 x10e3/uL (4.8-10.8)
[2024-04-26 08:21] LABS: ALBUMIN 2.7 g/dL (3.5-5.0); ALBUMIN/GLOBULIN RATIO 1.2 (0.8-2.0); ANION GAP 17.8 mmol/L (8-16); BILIRUBIN,TOTAL 1.4 mg/dL (0.2-1.2); CALCIUM 11.2 mg/dL (8.4-10.2); CREATININE, SERUM 0.98 mg/dL (0.72-1.25); MAGNESIUM 1.7 MG/DL (1.3-2.1); PHOSPHORUS 3.7 MG/DL (2.3-4.7); POTASSIUM 3.8 mmol/L (3.5-5.1); TOTAL PROTEIN 4.9 g/dL (6.5-8.1)
[2024-04-26 08:27] LABS: TROPONIN I 0.021 ng/mL (0-0.300)
[2024-04-26 09:01] LABS: INR 1.1; PARTIAL THROMBOPLASTIN TIME 31.8 seconds (23.8-35.5); PROTHROMBIN TIME 14.9 seconds (11.9-14.5)
[2024-04-26] MEDS: FUROSEMIDE INJ 10 MG/ML 2 ML VIAL IV ONE (09:22)
[2024-04-26] MEDS: FAMOTIDINE 20 MG/2 ML VIAL IV SCH (09:23)
[2024-04-26] MEDS: ASPIRIN 81 MG CHEW TAB PO ONE (09:23)
[2024-04-26] MEDS ORDERED: ACETAMINOPHEN 325 MG TAB PO PRN ×2 (10:00)
[2024-04-26] MEDS ORDERED: BISACODYL 10 MG SUPP PR PRN (10:00)
[2024-04-26] MEDS ORDERED: POLYETHYLENE GLYCOL 3350 17 GM PACK PO PRN (10:00)
[2024-04-26 10:05] LABS: LYMPHOCYTES % (MANUAL) 13 % (19-48); MONOCYTES % (MANUAL) 5 % (3.4-9.0); NEUTROPHILS % (MANUAL) 75 % (40-74); REACTIVE LYMPHOCYTES 7
[2024-04-26 10:06] LABS: PLATELET ESTIMATE ADEQUATE; PLATELET MORPHOLOGY COMMENT NORMAL
[2024-04-26 10:38] LABS: BASOPHILS % 0.9 % (0.0-1.0); EOSINOPHILS % 0.2 % (0.0-6.0); HEMATOCRIT 39.5 % (38.2-49.6); HEMOGLOBIN 11.9 g/dL (14.0-18.0); LYMPHOCYTES # (AUTO) 1.2 (1.0-3.2); LYMPHOCYTES % 26.9 % (18.0-39.1); MEAN CORPUSCULAR HEMOGLOBIN 28.8 pg (28-32); MEAN CORPUSCULAR HGB CONC 30.1 g/dL (31-35); MEAN CORPUSCULAR VOLUME 95.6 fL (81-99); MONOCYTES # (AUTO) 0.5 (0.2-0.8); MONOCYTES % 10.7 % (4.4-11.3); NEUTROPHILS # (AUTO) 2.7 (2.1-6.9); NEUTROPHILS % 59.5 % (38.7-80.0); PLATELET COUNT 120 x10e3/uL (140-360); RED BLOOD COUNT 4.13 x10e6/uL (4.3-5.7); RED CELL DISTRIBUTION WIDTH 18.6 % (11.7-14.4); WHITE BLOOD COUNT 4.49 x10e3/uL (4.8-10.8)
[2024-04-26 11:29] LABS: LYMPHOCYTES % (MANUAL) 20 % (19-48); MONOCYTES % (MANUAL) 9 % (3.4-9.0); NEUTROPHILS % (MANUAL) 68 % (40-74); REACTIVE LYMPHOCYTES 3
[2024-04-26 11:30] LABS: PLATELET ESTIMATE SLIGHTLY DECREASED; PLATELET MORPHOLOGY COMMENT FEW LARGE
[2024-04-26 11:31] LABS: HYPOCHROMASIA SLIGHT
[2024-04-26 18:40] LABS: LYMPHOCYTES,BODY FLUID 90 %; MONO/MACROPHG,BODY FLUID 6 %; NEUTROPHILS,BODY FLUID 4 %; TOTAL CELLS COUNTED (DIFF) 100
[2024-04-26 18:41] LABS: BODY FLUID APPEARANCE CLEAR; BODY FLUID COLOR YELLOW; BODY FLUID TYPE PLEURAL; WBC,BODY FLUID 264 cells/uL
[2024-04-26 18:42] LABS: RBC,BODY FLUID 0 cells/uL
[2024-04-27] VITALS (8 sets, daily range): BP systolic 97–118; BP diastolic 52–64; PULSE 69–89; RESP 14–20; TEMP 97.4–98.2; O2SAT 95–100
[2024-04-27 06:59] LABS: BASOPHILS % 0.5 % (0.0-1.0); EOSINOPHILS % 0.3 % (0.0-6.0); HEMATOCRIT 33.4 % (38.2-49.6); HEMOGLOBIN 10.9 g/dL (14.0-18.0); LYMPHOCYTES % 26.1 % (18.0-39.1); MEAN CORPUSCULAR HEMOGLOBIN 29.2 pg (28-32); MEAN CORPUSCULAR HGB CONC 32.6 g/dL (31-35); MEAN CORPUSCULAR VOLUME 89.5 fL (81-99); MONOCYTES # (AUTO) 0.5 (0.2-0.8); NEUTROPHILS # (AUTO) 2.3 (2.1-6.9); NEUTROPHILS % 58.8 % (38.7-80.0); PLATELET COUNT 123 x10e3/uL (140-360); RED BLOOD COUNT 3.73 x10e6/uL (4.3-5.7); RED CELL DISTRIBUTION WIDTH 18.3 % (11.7-14.4); WHITE BLOOD COUNT 3.91 x10e3/uL (4.8-10.8)
[2024-04-27 07:55] LABS: FERRITIN 1694.22 ng/mL (21.81-274.66); THYROID STIMULATING HORMONE 6.307 uIU/mL (0.350-4.940)
[2024-04-27 08:09] LABS: FOLATE 12.5 ng/mL (7.0-15.4)
[2024-04-27 08:33] LABS: ALBUMIN 2.8 g/dL (3.5-5.0); ALBUMIN/GLOBULIN RATIO 1.3 (0.8-2.0); ANION GAP 17.1 mmol/L (8-16); BILIRUBIN,TOTAL 1.4 mg/dL (0.2-1.2); CALCIUM 11.8 mg/dL (8.4-10.2); CREATININE, SERUM 0.99 mg/dL (0.72-1.25)
[2024-04-27 08:43] LABS: POTASSIUM 3.1 mmol/L (3.5-5.1)
[2024-04-27] MEDS: SENNOSIDES 8.6 MG TAB PO SCH (10:00)
[2024-04-27] MEDS: DOCUSATE SODIUM 100 MG CAP PO SCH (10:00)
[2024-04-27] MEDS: POTASSIUM CHLORIDE 10MEQ EA PO ONE (13:48)
[2024-04-27] MEDS: MAGNESIUM SULFATE 2GM/50ML 50 ML IV ONE (13:50)
[2024-04-27] MEDS: CARVEDILOL 3.125 MG TAB PO SCH (16:42)
[2024-04-28] VITALS (10 sets, daily range): BP systolic 107–132; BP diastolic 54–80; PULSE 65–74; RESP 15–21; TEMP 97–98.6; O2SAT 94–99
[2024-04-28 05:59] LABS: BASOPHILS % 0.5 % (0.0-1.0); EOSINOPHILS % 0.5 % (0.0-6.0); HEMATOCRIT 34.2 % (38.2-49.6); HEMOGLOBIN 11.1 g/dL (14.0-18.0); LYMPHOCYTES % 21.8 % (18.0-39.1); MEAN CORPUSCULAR HGB CONC 32.5 g/dL (31-35); MEAN CORPUSCULAR VOLUME 89.3 fL (81-99); MONOCYTES # (AUTO) 0.5 (0.2-0.8); NEUTROPHILS # (AUTO) 2.8 (2.1-6.9); NEUTROPHILS % 63.6 % (38.7-80.0); PLATELET COUNT 115 x10e3/uL (140-360); RED BLOOD COUNT 3.83 x10e6/uL (4.3-5.7); RED CELL DISTRIBUTION WIDTH 18.3 % (11.7-14.4); WHITE BLOOD COUNT 4.35 x10e3/uL (4.8-10.8)
[2024-04-28 06:33] LABS: ALBUMIN 2.7 g/dL (3.5-5.0); ALBUMIN/GLOBULIN RATIO 1.4 (0.8-2.0); ANION GAP 16.1 mmol/L (8-16); BILIRUBIN,TOTAL 1.5 mg/dL (0.2-1.2); CALCIUM 11.1 mg/dL (8.4-10.2); CREATININE, SERUM 0.91 mg/dL (0.72-1.25); MAGNESIUM 1.6 MG/DL (1.3-2.1); TOTAL PROTEIN 4.7 g/dL (6.5-8.1)
[2024-04-28 06:50] LABS: POTASSIUM 3.1 mmol/L (3.5-5.1)
[2024-04-28] MEDS ORDERED: MAGNESIUM SULFATE 2GM/50ML 50 ML IV ONE (11:00)
[2024-04-28] MEDS ORDERED: POTASSIUM CHLORIDE 10MEQ EA PO ONE (11:00)
[2024-04-28] MEDS: LOSARTAN POTASSIUM 25 MG TAB PO SCH (11:34)
[2024-04-28] MEDS: POTASSIUM CHLORIDE 20 MEQ TAB CR PO SCH (11:34)
[2024-04-28] MEDS: FUROSEMIDE INJ 10 MG/ML 2 ML VIAL IV SCH (11:35)
[2024-04-28] MEDS: MAGNESIUM SULFATE 2GM/50ML 50 ML IV SCH (11:36)
[2024-04-28] MEDS ORDERED: GENTAMICIN SULFATE 40 MG/ML 2 ML VIAL ONE (13:25)
[2024-04-28] MEDS ORDERED: LIDOCAINE HCL 2% LOCAL 20 ML VIAL ONE (13:25)
[2024-04-28] MEDS ORDERED: SODIUM BICARBONATE 8.4% SYRING 50 ML ONE (13:26)
[2024-04-28] MEDS ORDERED: SODIUM CHLORIDE 0.9% 1000ML 2,000 ML ONE (13:26)
[2024-04-28] MEDS ORDERED: SODIUM CHLORIDE 0.9% 250ML 250 ML ONE (13:26)
[2024-04-28] MEDS ORDERED: Vancomycin IV 1 GM VIAL ONE (13:26)
[2024-04-28] MEDS ORDERED: IOPAMIDOL 610MG/1ML 300 MG/ML VIAL IV ONE (13:26)
[2024-04-28] MEDS ORDERED: SODIUM CHLORIDE 0.9% 500ML 500 ML ONE (13:26)
[2024-04-28] MEDS ORDERED: MIDAZOLAM HCL 2 MG/2 ML VIAL ONE ×2 (13:50→15:16)
[2024-04-28] MEDS ORDERED: FENTANYL CITRATE/PF 100MCG/2 ML INJ ONE (13:50)
[2024-04-28] MEDS: DOXYCYCLINE HYCLATE TABLET 100 MG TAB PO SCH (17:48)
[2024-04-29] VITALS (7 sets, daily range): BP systolic 98–110; BP diastolic 52–81; PULSE 67–79; RESP 18–21; TEMP 97.5–98.1; O2SAT 95–100
[2024-04-29 00:09] LABS: CLARITY,URINE CLEAR (CLEAR); COLOR,URINE YELLOW (YELLOW); PH,URINE 6 (5 - 7)
[2024-04-29 00:10] LABS: BILIRUBIN,URINE NEGATIVE (NEGATIVE); GLUCOSE, URINE NEGATIVE (NEGATIVE); KETONES,URINE NEGATIVE (NEGATIVE); LEUKOCYTE ESTERASE ,URINE NEGATIVE (NEGATIVE); NITRITE,URINE NEGATIVE (NEGATIVE); PROTEIN,URINE DIPSTICK NEGATIVE (NEGATIVE); URINE UROBILINOGEN 1 mg/dL (0.2 - 1)
[2024-04-29 00:11] LABS: BACTERIA,URINE MANY /HPF; EPITHELIAL CELLS,URINE RARE /LPF; RBC,URINE 0-5 /HPF (0-5); WBC,URINE (MAN) 0-5 /HPF (0-5)
[2024-04-29 05:32] LABS: ALPHA FETO-PROTEIN 1.8 ng/mL (0.0-6.4)
[2024-04-29 06:42] LABS: BASOPHILS % 0.5 % (0.0-1.0); EOSINOPHILS % 0.5 % (0.0-6.0); HEMATOCRIT 35.3 % (38.2-49.6); HEMOGLOBIN 11.4 g/dL (14.0-18.0); LYMPHOCYTES # (AUTO) 0.8 (1.0-3.2); LYMPHOCYTES % 20.6 % (18.0-39.1); MEAN CORPUSCULAR HEMOGLOBIN 28.8 pg (28-32); MEAN CORPUSCULAR HGB CONC 32.3 g/dL (31-35); MEAN CORPUSCULAR VOLUME 89.1 fL (81-99); MONOCYTES # (AUTO) 0.4 (0.2-0.8); MONOCYTES % 10.3 % (4.4-11.3); NEUTROPHILS # (AUTO) 2.5 (2.1-6.9); NEUTROPHILS % 66.3 % (38.7-80.0); RED BLOOD COUNT 3.96 x10e6/uL (4.3-5.7); RED CELL DISTRIBUTION WIDTH 18.7 % (11.7-14.4); WHITE BLOOD COUNT 3.79 x10e3/uL (4.8-10.8)
[2024-04-29 06:46] LABS: PLATELET COUNT 97 x10e3/uL (140-360)
[2024-04-29 07:11] LABS: ALBUMIN 2.7 g/dL (3.5-5.0); ALBUMIN/GLOBULIN RATIO 1.4 (0.8-2.0); ANION GAP 15.6 mmol/L (8-16); BILIRUBIN,TOTAL 1.4 mg/dL (0.2-1.2); CREATININE, SERUM 0.96 mg/dL (0.72-1.25); MAGNESIUM 1.8 MG/DL (1.3-2.1); POTASSIUM 3.6 mmol/L (3.5-5.1); TOTAL PROTEIN 4.7 g/dL (6.5-8.1)
[2024-04-29] MEDS: MAGNESIUM SULFATE 2GM/50ML 50 ML IV ONE (12:49)
[2024-04-29] MEDS: POTASSIUM CHLORIDE 20 MEQ TAB CR PO ONE (12:49)
[2024-04-30] VITALS (10 sets, daily range): BP systolic 100–131; BP diastolic 50–66; PULSE 70–76; RESP 18; TEMP 97.9–98.2; O2SAT 97–100
[2024-04-30 09:12] LABS: BASOPHILS % 0.5 % (0.0-1.0); EOSINOPHILS % 0.8 % (0.0-6.0); HEMATOCRIT 35.2 % (38.2-49.6); HEMOGLOBIN 11.4 g/dL (14.0-18.0); MEAN CORPUSCULAR HEMOGLOBIN 29.2 pg (28-32); MEAN CORPUSCULAR HGB CONC 32.4 g/dL (31-35); MEAN CORPUSCULAR VOLUME 90.3 fL (81-99); MONOCYTES # (AUTO) 0.4 (0.2-0.8); MONOCYTES % 9.4 % (4.4-11.3); NEUTROPHILS # (AUTO) 2.3 (2.1-6.9); PLATELET COUNT 90 x10e3/uL (140-360); RED CELL DISTRIBUTION WIDTH 19.3 % (11.7-14.4); WHITE BLOOD COUNT 3.82 x10e3/uL (4.8-10.8)
[2024-04-30 09:48] LABS: ALBUMIN 2.6 g/dL (3.5-5.0); ALBUMIN/GLOBULIN RATIO 1.3 (0.8-2.0); ANION GAP 15.6 mmol/L (8-16); BILIRUBIN,TOTAL 1.2 mg/dL (0.2-1.2); CALCIUM 11.5 mg/dL (8.4-10.2); CREATININE, SERUM 0.96 mg/dL (0.72-1.25); MAGNESIUM 1.8 MG/DL (1.3-2.1); POTASSIUM 3.6 mmol/L (3.5-5.1); TOTAL PROTEIN 4.6 g/dL (6.5-8.1)
[2024-04-30] MEDS: MAGNESIUM HYDROXIDE 30 ML UDC PO ONE (13:25)
[2024-04-30] MEDS: POTASSIUM CHLORIDE 20 MEQ TAB CR PO ONE (13:26)
[2024-04-30] MEDS ORDERED: COREG3.125 MG PO (17:20)
[2024-04-30] MEDS ORDERED: DOXYCYCLINE HY100 MG PO (17:20)
[2024-04-30] MEDS ORDERED: COZAAR25 MG PO (17:20)
[2024-05-02 06:25] LABS: ABG HCO3 23 mmol/L (22-26); ABG PCO2 35 mmHg (35-45); ABG PH 7.42 (7.35-7.45); ABG PO2 113 mmHg (80-105); ABG TCO2 24
[2024-05-02 06:43] LABS: HEPATITIS A ANTIBODY IGM (P) Negative; HEPATITIS B CORE IGM (P) Negative; HEPATITIS B SURFACE AG (P) Negative; HEPATITIS C ANTIBODY Non Reactive
[2024-05-02 06:51] LABS: TOTAL PROTEIN,BODY FLUID 2.1 g/dL
== END 2024-04-30 18:34 | DRG 277 ==
LOC: FSED 15:54 → ERHOLD 04-26 00:06 → MED/SURG3 04-26 01:30
PROVIDERS: ADMIT Internal Medicine; ATTEND Internal Medicine
PROC: 0W993ZZ Drainage of Right Pleural Cavity, Percutaneous Approach (ICD-10-PCS; principal; 2024-04-26)
PROC: 07B63ZX Excision of Left Axillary Lymphatic, Percutaneous Approach, Diagnostic (ICD-10-PCS; 2024-04-26)
PROC: 0JH608Z Insertion of Defibrillator Generator into Chest Subcutaneous Tissue and Fascia, Open Approach (ICD-10-PCS; 2024-04-28)
PROC: 02H63KZ Insertion of Defibrillator Lead into Right Atrium, Percutaneous Approach (ICD-10-PCS; 2024-04-28)
PROC: 02HK3KZ Insertion of Defibrillator Lead into Right Ventricle, Percutaneous Approach (ICD-10-PCS; 2024-04-28)
PROC: 3E0132A Introduction of Anti-Infective Envelope into Subcutaneous Tissue, Percutaneous Approach (ICD-10-PCS; 2024-04-28)
PROC: 4B02XTZ Measurement of Cardiac Defibrillator, External Approach (ICD-10-PCS; 2024-04-29)
DX: I50.43 Acute on chronic combined systolic (congestive) and diastolic (congestive) heart failure (principal); D61.818 Other pancytopenia; I48.20 Chronic atrial fibrillation, unspecified; I47.29 Other ventricular tachycardia; J91.8 Pleural effusion in other conditions classified elsewhere; E44.0 Moderate protein-calorie malnutrition; I25.5 Ischemic cardiomyopathy; I25.10 Atherosclerotic heart disease of native coronary artery without angina pectoris; Z95.1 Presence of aortocoronary bypass graft; Z95.5 Presence of coronary angioplasty implant and graft; I25.2 Old myocardial infarction; E03.9 Hypothyroidism, unspecified; R59.1 Generalized enlarged lymph nodes; R16.1 Splenomegaly, not elsewhere classified; E83.52 Hypercalcemia; R94.31 Abnormal electrocardiogram [ECG] [EKG]; R68.81 Early satiety; R53.1 Weakness; H54.61 Unqualified visual loss, right eye, normal vision left eye; E83.42 Hypomagnesemia; C80.1 Malignant (primary) neoplasm, unspecified; I34.0 Nonrheumatic mitral (valve) insufficiency; E78.2 Mixed hyperlipidemia; I71.40 Abdominal aortic aneurysm, without rupture, unspecified; Z95.828 Presence of other vascular implants and grafts; R73.03 Prediabetes; R53.81 Other malaise; Z79.899 Other long term (current) drug therapy
CPT/HCPCS: 32555; 33217; 36415; 38505; 71045; 71260; 74177; 74470; 76604; 76937; 76942; 80048; 80053; 80076; 81001; 81003; 82040; 82105; 82378; 82550; 82553; 82607; 82728; 82746; 82805; 82945; 82948; 83540; 83615; 83735; 83880; 84100; 84152; 84157; 84439; 84443; 84466; 84480; 84481; 84484; 85025; 85379; 85610; 85730; 86301; 87070; 87205; 88112; 88304; 88305; 89051; 93005; 93306; 99152; 99153; 99252; 99284; C1721; C1763; C1895; C1898; J1580; J1940; J2003; J2250; J2405; J3475; J7030; J7040; J7050; Q9967